=== PATIENT | female | born 1985 | race Two or more races ===

== ENCOUNTER 2016-08-16 22:30 | Emergency (ER) | payer OTHER ==
[2016-08-17 00:13] LABS: BASO # 0.1 K/mm3 (0.0-0.2); BASO % 0.7 % (0.0-1.0); EOS # 0.1 K/mm3 (0.0-0.50); EOS % 0.7 % (0.0-3.0); LARGE UNSTAINED CELL # 0.1 K/mm3 (0.0-0.4); LARGE UNSTAINED CELL % 1.1 % (0.0-4.0); LYMPH # 2.2 K/mm3 (1.5-4.5); LYMPH % 15.7 % (24.0-44.0); MEAN CORPUSCULAR HEMOGLOBIN 27.3 pg (27.0-33.0); MEAN CORPUSCULAR HGB CONC 33.5 g/dl (32.0-36.5); MEAN CORPUSCULAR VOLUME 81.4 fl (80.0-96.0); MONO # 0.7 K/mm3 (0.0-0.8); MONO % 5.1 % (0.0-5.0); NEUTROPHILS # 10.1 K/mm3 (1.8-7.7); NEUTROPHILS % 76.8 % (36.0-66.0); PLATELET COUNT, AUTOMATED 233 k/mm3 (150-450); RED CELL DISTRIBUTION WIDTH 13.2 % (11.5-14.5); WHITE BLOOD COUNT 13.2 K/mm3 (4.0-10.0)
[2016-08-17 00:58] LABS: ALBUMIN/GLOBULIN RATIO 0.91 (1.00-1.93); ALKALINE PHOSPHATASE 62 U/L (45-117); ALT/SGPT 15 U/L (12-78); AMYLASE 48 U/L (25-115); ANION GAP 12 MEQ/L (8-16); AST/SGOT 14 U/L (15-37); BILIRUBIN,DIRECT 0.3 MG/DL (0.0-0.2); BILIRUBIN,TOTAL 0.7 MG/DL (0.2-1.0); BLOOD UREA NITROGEN 4 MG/DL (7-18); CALCIUM LEVEL 8.4 MG/DL (8.5-10.1); CARBON DIOXIDE LEVEL 22 MEQ/L (21-32); CHLORIDE LEVEL 102 MEQ/L (98-107); CREATININE FOR GFR 1.04 MG/DL (0.55-1.02); GLOMERULAR FILTRATION RATE > 60.0 (>60); GLUCOSE, FASTING 105 MG/DL (70-105); POTASSIUM SERUM 3.4 MEQ/L (3.5-5.1); SODIUM LEVEL 136 MEQ/L (136-145); TOTAL PROTEIN 8.4 GM/DL (6.4-8.2)
[2016-08-17] MEDS ORDERED: ACETAMINOPHEN 325 MG TAB As Ordered ONE (00:58)
[2016-08-17 01:05] LABS: CONTROL LINE UCG INT CTR LINE PRESENT
[2016-08-17] MEDS ORDERED: cefTRIAXone SOD 1 GM VIAL (J0696) As Ordered ONE (01:36)
[2016-08-17] MEDS ORDERED: CIPROFLOXACIN 500 MG TAB As Ordered ONE (01:36)
--- NOTE | 2016-08-17 02:20 | EDDOCDS ---
Physician Documentation [facility] Name: Michaelle Morales Age: 31 yrs Sex: Female : 1985 Arrival Date: 08/16/2016 Time: 22:30 Bed I4 / M4 Private MD: NORTH Danielle Disposition: 08/17/16 01:48 Discharged to Home/Self Care. Impression: Urinary tract infection, site not specified - left pyelonephritis. - Condition is Stable. - Discharge Instructions: Pyelonephritis, Adult, Urinary Tract Infection, Urodynamic Testing, Hygu-nz-Iols. - Prescriptions for Cipro 500 mg Oral Tablet - take 1 tablet by ORAL route every 12 hours; 20 tablet. ZOFRAN ODT 4 mg - dissolve 1 tablet by ORAL route 4 times per day As needed do not chew, do not swallow whole; 10 tablet. Diflucan 150 mg Oral Tablet - take 1 tablet by ORAL route one time for 1 day; 2 tablet. - Medication Reconciliation, Local Pharmacy Hours form. - Follow up: NORTH Danielle; When: 2 - 3 days; Reason: Recheck today's complaints, Continuance of care. Follow up: Sanket Carreon MD; When: Call to arrange an appointment; Reason: Recheck today's complaints, Continuance of care. - Problem is an acute exacerbation. - Symptoms are unchanged. Historical: - Allergies: no known allergies; - Home Meds: 1. none - PMHx: none; - PSHx: none; - Social history: Smoking status: Patient states was never smoker of tobacco. No barriers to communication noted, The patient speaks fluent Swedish. - Family history: Not pertinent. - : The pt / caregiver states he / she is not on anticoagulants. Home medication list is obtained from the patient. - Exposure Risk Screening:: None identified. 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 3 in. (160.02 cm); Pain 6/10; 08/17 01:00 Temp 100.5(O); jmb 01:53 BP 110 / 65 LA Sitting (auto/reg); Pulse 77 MON; Resp 20 S; Temp 99.5(T); Pulse Ox 100% cln on R/A; Pain 0/10; 08/16 22:32 Body Mass Index 35.43 (90.72 kg, 160.02 cm) elp MDM: 08/16 23:42 Undress patient appropriately for examination ordered. ck7 23:42 Acetaminophen Tablet 975 mg PO once ordered. ck7 23:42 NS 0.9% 1000 ml IV at bolus once ordered. ck7 23:43 IV Saline Lock ordered. ck7 23:43 NOTHING BY MOUTH+DIET ordered. EDMS 23:43 Amylase Ordered. EDMS 23:43 Basic Metabolic Profile Ordered. EDMS 23:43 CBC with Diff Ordered. EDMS 23:43 Lipase Ordered. EDMS 23:43 Liver Profile Ordered. EDMS 23:43 Urinalysis Ordered. EDMS 23:43 Urine Culture Ordered. EDMS 08/17 00:35 [facility] [place] was scanned into [employer] and attached to record. lja 00:35 Financial registration complete. lja 00:42 CBC with Diff Reviewed. ck7 00:55 UCG- In Lab Ordered. EDMS 01:03 Acetaminophen Tablet 975 mg PO once ordered. jmb 01:14 UCG- In Lab Reviewed. mo1 01:14 Lipase Reviewed. mo1 01:14 Amylase Reviewed. mo1 01:14 Urinalysis Reviewed. mo1 01:15 Liver Profile Reviewed. mo1 01:15 Basic Metabolic Profile Reviewed. mo1 01:33 cefTRIAXone 1 grams IVPB once over 30 mins; dilute in 50mL of NS or D5W ordered. mo1 01:33 Ciprofloxacin 500 mg PO once ordered. mo1 Administered Medications: 00:02 Not Given (Patient Refused): Acetaminophen Tablet 975 mg PO once jmb 00:08 Drug: NS 0.9% 1000 ml [sodium chloride 0.9 % intravenous solution] Route: IV; Rate: jmb bolus; Site: right antecubital; 01:03 Drug: Acetaminophen 975 mg [acetaminophen 325 mg tablet (3 tabs)] Route: PO; jmb :43 Drug: cefTRIAXone 1 grams [ceftriaxone 1 gram solution for injection] Route: IVPB; jmb Infused Over: 30 mins; Site: right antecubital; 43 Drug: Ciprofloxacin 500 mg [ciprofloxacin 500 mg tablet (1 tabs)] Route: PO; linda Signatures: Dispatcher [employer] Venice BowserRN RN rs3 Andrey Valdivia, LAMONTC RPA-Cck7 Ivan Dorado PA PA mo1 Becker, Joshua,RN RN ellyb Epi, Yaritza valdez The chart was reviewed and I authenticate all verbal orders and agree with the evaluation and treatment provided.Corrections: (The following items were deleted from the chart) 00:53 08/16 23:42 UCG by Nursing ordered. ck7 ka4 Attachments: 08/17 00:35 [facility] [place] courtney MTDD
--- NOTE | 2016-08-17 02:20 | EDDOCDS ---
Nurse's Notes [facility] Name: Michaelle Morales Age: 31 yrs Sex: Female : 1985 Arrival Date: 08/16/2016 Time: 22:30 Bed I4 / M4 Private MD: NORTH Danielle Diagnosis: Urinary tract infection, site not specified-left pyelonephritis Presentation: 08/16 22:34 Presenting complaint: Patient states: fever, chills and left flank pain for 2 days. h/o rs3 pyelonephritis. Acute neurological deficits are not present. Mechanism of Injury: No Mechanism of Injury. Adult Sepsis Screening: The patient does not have new or worsening altered mentation. Patient's respiratory rate is less than 22. Systolic blood pressure is greater than 100. Patient has a qSOFA score of 0- Negative Sepsis Screen. Suicide/Homicide risk assessment- the patient denies having any suicidal and/or homicidal ideations and does not present with any other emotional, behavioral or mental health complaints. Status: The patient is a dependent. Transition of care: patient was not received from another setting of care. 22:34 Acuity: WILLIAM Level 3 rs3 22:34 Method Of Arrival: Walkin/Carried/Asstd rs3 Triage Assessment: 22:35 General: Appears in no apparent distress. Pain: Location: left mid back. Pt Declines rs3 HIV testing. Musculoskeletal: Reports Pain is 7 out of 10 on a pain scale. 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 none - PMHx: none; - PSHx: none; - Social history: Smoking status: Patient states was never smoker of tobacco. No barriers to communication noted, The patient speaks fluent Jordanian. - Family history: Not pertinent. - : The pt / caregiver states he / she is not on anticoagulants. Home medication list is obtained from the patient. - Exposure Risk Screening:: None identified. Screenin/02 00:06 Screening information is obtained from the patient. Fall risk: No risks identified. jmb Assistance ADL's: requires no assistance with activities of daily living. Abuse/DV Screen: The patient / caregiver reports he/she is: not in a situation that causes fear, pain or injury. Nutritional screening: No deficits noted. home support is adequate. 02:18 Advance Directives: Currently, there is no health care proxy. There is no active DNR jmb order. There is no living will. There is no Power of Bus Dispatcher [employer]. Assessment: 00:06 General: Appears in no apparent distress, comfortable, Behavior is appropriate for age, jmb cooperative. Pain: Location: left mid back Pain currently is 6 out of 10 on a pain scale. Neurological: Level of Consciousness is awake, alert, obeys commands, Oriented to person, place, time, Director Radio are equal bilaterally Speech is normal, Facial symmetry appears normal, Facial symmetry: tongue is midline. Cardiovascular: Capillary refill < 3 seconds Heart tones present Pulses are all present. Rhythm is regular. Respiratory: Airway is patent Respiratory effort is even, unlabored, Respiratory pattern is regular, symmetrical, Breath sounds are clear bilaterally. GI: Abdomen is non- distended Bowel sounds present X 4 quads. hypoactive in right upper quadrant, left upper quadrant, right lower quadrant and left lower quadrant Abd is soft X 4 quads. Derm: Skin is pink, warm & dry. Musculoskeletal: Range of motion intact in all extremities. 00:09 General: Appears in no apparent distress, comfortable, well nourished, well groomed, ka4 Behavior is appropriate for age, cooperative, pleasant. Neurological: Level of Consciousness is awake, alert, obeys commands, Oriented to person, place, time, Director Radio are equal bilaterally Moves all extremities. Gait is steady, Speech is normal, Facial symmetry appears normal, Facial symmetry: tongue is midline. Cardiovascular: Capillary refill < 3 seconds in bilateral fingers toes. Respiratory: Airway is patent Respiratory effort is even, unlabored, Respiratory pattern is regular, symmetrical. Derm: Skin is intact, is healthy with good turgor, Skin is pink, warm & dry. 00:43 General: Appears in no apparent distress, comfortable, Behavior is appropriate for age, jmb cooperative, Patient up to bathroom. NO voiced complaints at this time.. Neurological: Level of Consciousness is awake, alert, obeys commands, Oriented to person, place, time. Respiratory: Airway is patent Respiratory effort is even, unlabored, Respiratory pattern is regular, symmetrical. 01:00 General: Ramiro GROSSMAN asked this video game script writer why patient did not receive Tylenol as jmb ordered originally. Provider made aware that patient only waned fluids, refused tylenol. Provider stated that if she refuses tylenol then she can sign an AMA. This video game script writer spoke with patient and explained reason for patient being ordered tylenol, patient was willing to take medication. Patient temperature taken orally, temperature 100.5 degrees fahreneheit. Patient took tylenol post recheck on temperature. . 02:18 General: Patient instructed on discharge instructions. Patient asked if there were any [facility] questions regarding discharge, patient stated no. IV discontinued per hospital policy. Patient signed discharge instructions. Patient discharged in stable condition. . Vital Signs: 08/16 22:32 BP 133 / 68; Pulse 102; Resp 20; Temp 101.3(O); Pulse Ox 100% ; Weight 90.72 kg; Height elp 5 ft. 3 in. (160.02 cm); Pain 6/10; 08/17 01:00 Temp 100.5(O); jmb 01:53 BP 110 / 65 LA Sitting (auto/reg); Pulse 77 MON; Resp 20 S; Temp 99.5(T); Pulse Ox 100% cln on R/A; Pain 0/10; 08/16 22:32 Body Mass Index 35.43 (90.72 kg, 160.02 cm) elp Vitals: 08/16 22:32 Log In Time: August 16, 2016 at 22:[address] [facility] ED Course: 22:32 Patient visited by Tonja Lopez PCA. elp 22:32 NORTH Danielle is Private Physician. elp 22:32 Patient visited by Tonja Lopez PCA. elp 22:32 Patient moved to Waiting elp 22:32 Patient moved to Pre RCE elp 22:35 Triage Initiated rs3 23:20 Patient moved to Triage 2 kmg1 23:24 [facility] ck7 23:24 Chapincito Carrillo DO is Attending Physician. ck7 23:24 Patient visited by Andrey Valdivia RPA-C. ck7 23:45 Patient moved to I4 / M4 km 08/17 00:06 The patient / caregiver is instructed regarding the plan of care and ED course. b 00:06 Inserted saline lock: 20 gauge in right antecubital area and blood collected. The b patient tolerated the procedure well. Labs drawn. (by ED staff). Sent per order to lab. 00:08 Patient visited by Tai Marks RN. jmb 00:08 Patient visited by Tai Marks RN. jmb 00:08 Amylase Sent. jmb 00:08 Basic Metabolic Profile Sent. jmb 00:08 CBC with Diff Sent. jmb 00:08 Lipase Sent. jmb 00:08 Liver Profile Sent. jmb 00:10 Patient visited by Latoya Hayden LPN. ka4 00:35 [facility] Payment Agreement was scanned into [employer] and attached to record. lja 00:44 Patient visited by Tai Marks RN. jmb 00:55 Patient visited by Latoya Hayden LPN. ka4 00:55 Urine collected. Clean catch specimen. Urine specimen sent to lab. ka4 00:55 UCG- In Lab Sent. ka4 00:56 PHCP role handed off by Andrey Valdivia RPA-C mo1 00:56 Ivan Dorado PA is PHCP. mo1 01:48 NORTH Danielle is Referral Physician. mo1 01:48 Sanket Carreon MD is Referral Physician. mo1 01:54 Patient visited by Aleksandra Goins PCA. cln 02:18 Discontinued lock intact, bleeding controlled, pressure dressing applied, No jmb redness/swelling at site. No procedures done that require assistance. Administered Medications: 00:02 Not Given (Patient Refused): Acetaminophen Tablet 975 mg PO once jmb 00:08 Drug: NS 0.9% 1000 ml [sodium chloride 0.9 % intravenous solution] Route: IV; Rate: jmb bolus; Site: right antecubital; 01:03 Drug: Acetaminophen 975 mg [acetaminophen 325 mg tablet (3 tabs)] Route: PO; jmb 01:43 Drug: cefTRIAXone 1 grams [ceftriaxone 1 gram solution for injection] Route: IVPB; jmb Infused Over: 30 mins; Site: right antecubital; :43 Drug: Ciprofloxacin 500 mg [ciprofloxacin 500 mg tablet (1 tabs)] Route: PO; jmb Order Results: Lab Order: Amylase; SPEC'M 08/17/16 00:02 Test: AMYLASE; Value: 48; Range: 25-115; Units: U/L; Status: F Lab Order: Basic Metabolic Profile; SPEC'M 08/17/16 00:02 Test: GLUCOSE, FASTING; Value: 105; Range: 70-105; Units: MG/DL; Status: F Test: BLOOD UREA NITROGEN; Value: 4; Range: 7-18; Abnormal: Below low normal; Units: MG/DL; Status: F Test: CREATININE FOR GFR; Value: 1.04; Range: 0.55-1.02; Abnormal: Above high normal; Units: MG/DL; Status: F Test: GLOMERULAR FILTRATION RATE; Value: > 60.0; Range: >60; Status: F Test: SODIUM LEVEL; Value: 136; Range: 136-145; Units: MEQ/L; Status: F Test: POTASSIUM SERUM; Value: 3.4; Range: 3.5-5.1; Abnormal: Below low normal; Units: MEQ/L; Status: F Test: CHLORIDE LEVEL; Value: 102; Range: 98-107; Units: MEQ/L; Status: F Test: CARBON DIOXIDE LEVEL; Value: 22; Range: 21-32; Units: MEQ/L; Status: F Test: ANION GAP; Value: 12; Range: 8-16; Units: MEQ/L; Status: F Test: CALCIUM LEVEL; Value: 8.4; Range: 8.5-10.1; Abnormal: Below low normal; Units: MG/DL; Status: F Test Note: ; Units are mL/min/1.73 m2 Chronic Kidney Disease Staging per NKF: Stage I & II GFR >=60 Normal to Mildly Decreased Stage III GFR 30-59 Moderately Decreased Stage IV GFR 15-29 Severely Decreased Stage V GFR <15 Very Little GFR Left ESRD GFR <15 on 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 OPERATOR Lab Order: CBC with Diff; SPEC'M 08/17/16 00:02 Test: WHITE BLOOD COUNT; Value: 13.2; Range: 4.0-10.0; Abnormal: Above high normal; Units: K/mm3; Status: F Test: RED BLOOD COUNT; Value: 4.71; Range: 4.00-5.40; Units: M/mm3; Status: F Test: HEMOGLOBIN; Value: 12.8; Range: 12.0-16.0; Units: g/dl; Status: F Test: HEMATOCRIT; Value: 38.3; Range: 36.0-47.0; Units: %; Status: F Test: MEAN CORPUSCULAR VOLUME; Value: 81.4; Range: 80.0-96.0; Units: fl; Status: F Test: MEAN CORPUSCULAR HEMOGLOBIN; Value: 27.3; Range: 27.0-33.0; Units: pg; Status: F Test: MEAN CORPUSCULAR HGB CONC; Value: 33.5; Range: 32.0-36.5; Units: g/dl; Status: F Test: RED CELL DISTRIBUTION WIDTH; Value: 13.2; Range: 11.5-14.5; Units: %; Status: F Test: PLATELET COUNT, AUTOMATED; Value: 233; Range: 150-450; Units: k/mm3; Status: F Test: NEUTROPHILS %; Value: 76.8; Range: 36.0-66.0; Abnormal: Above high normal; Units: %; Status: F Test: LYMPH %; Value: 15.7; Range: 24.0-44.0; Abnormal: Below low normal; Units: %; Status: F Test: MONO %; Value: 5.1; Range: 0.0-5.0; Abnormal: Above high normal; Units: %; Status: F Test: EOS %; Value: 0.7; Range: 0.0-3.0; Units: %; Status: F Test: BASO %; Value: 0.7; Range: 0.0-1.0; Units: %; Status: F Test: LARGE UNSTAINED CELL %; Value: 1.1; Range: 0.0-4.0; Units: %; Status: F Test: NEUTROPHILS #; Value: 10.1; Range: 1.8-7.7; Abnormal: Above high normal; Units: K/mm3; Status: F Test: LYMPH #; Value: 2.2; Range: 1.5-4.5; Units: K/mm3; Status: F Test: MONO #; Value: 0.7; Range: 0.0-0.8; Units: K/mm3; Status: F Test: EOS #; Value: 0.1; Range: 0.0-0.50; Units: K/mm3; Status: F Test: BASO #; Value: 0.1; Range: 0.0-0.2; Units: K/mm3; Status: F Test: LARGE UNSTAINED CELL #; Value: 0.1; Range: 0.0-0.4; Units: K/mm3; Status: F Lab Order: Lipase; [facility] 08/17/16 00:02 Test: LIPASE; Value: 105; Range: 73-393; Units: U/L; Status: F Lab Order: Liver Profile; [facility] 08/17/16 00:02 Test: AST/SGOT; Value: 14; Range: 15-37; Abnormal: Below low normal; Units: U/L; Status: F Test: ALT/SGPT; Value: 15; Range: 12-78; Units: U/L; Status: F Test: ALKALINE PHOSPHATASE; Value: 62; Range: 45-117; Units: U/L; Status: F Test: BILIRUBIN,TOTAL; Value: 0.7; Range: 0.2-1.0; Units: MG/DL; Status: F Test: BILIRUBIN,DIRECT; Value: 0.3; Range: 0.0-0.2; Abnormal: Above high normal; Units: MG/DL; Status: F Test: TOTAL PROTEIN; Value: 8.4; Range: 6.4-8.2; Abnormal: Above high normal; Units: GM/DL; Status: F Test: ALBUMIN; Value: 4.0; Range: 3.2-5.2; Units: GM/DL; Status: F Test: ALBUMIN/GLOBULIN RATIO; Value: 0.91; Range: 1.00-1.93; Abnormal: Below low normal; Status: F Lab Order: Urinalysis; [facility] 08/17/16 00:48 Test: APPEARANCE, URINE; Value: CLEAR; Range: CLEAR; Status: F Test: COLOR, URINE; Value: STRAW; Range: YELLOW; Status: F Test: PH,URINE; Value: 7.0; Range: 5.0-9.0; Units: UNITS; Status: F Test: SPECIFIC GRAVITY URINE AUTO; Value: 1.000; Range: 1.002-1.035; Abnormal: Below low normal; Status: F Test: PROTEIN, URINE AUTO; Value: NEGATIVE; Range: NEGATIVE; Units: mg/dL; Status: F Test: GLUCOSE, URINE (UA) AUTO; Value: NEGATIVE; Range: NEGATIVE; Units: mg/dL; Status: F Test: KETONE, URINE AUTO; Value: NEGATIVE; Range: NEGATIVE; Units: mg/dL; Status: F Test: UROBILINOGEN, URINE AUTO; Value: 0.2; Range: 0.0-2.0; Units: mg/dL; Status: F Test: BILIRUBIN, URINE AUTO; Value: NEGATIVE; Range: NEGATIVE; Status: F Test: NITRITE, URINE AUTO; Value: NEGATIVE; Range: NEGATIVE; Status: F Test: LEUKOCYTE ESTERASE, URINE AUTO; Value: 3+; Range: NEGATIVE; Abnormal: Above high normal; Status: F Test: BLOOD, URINE BLOOD; Value: 1+; Range: NEGATIVE; Abnormal: Above high normal; Status: F Test: WBC, URINE AUTO; Value: 2; Range: 0-3; Units: /HPF; Status: F Test: RBC, URINE AUTO; Value: 0; Range: 0-3; Units: /HPF; Status: F Test: BACTERIA, URINE AUTO; Value: 1+; Range: NEGATIVE; Abnormal: Above high normal; Status: F Test: SQUAMOUS EPITHELIAL CELL UR AU; Value: 0; Range: 0-6; Units: /HPF; Status: F Test: HYALINE CAST, URINE AUTO; Value: 0; Range: 0-1; Units: /LPF; Status: F Lab Order: UCG- In Lab; SPEC'M 08/17/17 00:48 Test: URINE PREG TEST; Value: NEGATIVE; Range: NEGATIVE; Status: F Outcome: 01:48 Discharge ordered by Provider. mo1 02:18 Discharge Assessment: Patient awake, alert and oriented x 3. No cognitive and/or jmb functional deficits noted. Patient verbalized understanding of disposition instructions. Patient awake and alert. obeys commands, Oriented to person, place and time. Patient verbalized understanding of disposition instructions. Patient has no functional deficits. patient administered narcotics - no. The following High Risk Discharge criteria are identified: None. Discharged to home ambulatory. Condition: stable. Discharge instructions given to patient, Instructed on discharge instructions, follow up and referral plans. medication usage, Demonstrated understanding of instructions, medications, Pt was receptive of discharge instructions/ teaching. Prescriptions given X 3. CT Study completed. Property sent home with patient. 02:19 Patient left the ED. jmb Signatures: Silvia Blue, RN RN kmg1 Venice Valdez,RN RN rs3 Andrey Valdivia, RPA-C RPA-Cck7 Ivan Dorado PA PA mo1 Tonja Lopez, ART GILDER ART GILDER elp Tai Marks,RN RN ellyb Catracho,Latoya,CATCHER PLUG CATCHER PLUG ka4 Arel, Yaritza Goins, Crystal, ART GILDER ART GILDER cln MTDD
--- NOTE | 2016-08-19 03:20 | EDDOCDS ---
Nurse's Notes [facility] Name: Michaelle Morales Age: 31 yrs Sex: Female : 1985 Arrival Date: 08/16/2016 Time: 22:30 Bed I4 / M4 Private MD: NORTH Danielle Diagnosis: Urinary tract infection, site not specified-left pyelonephritis Presentation: 08/16 22:34 Presenting complaint: Patient states: fever, chills and left flank pain for 2 days. h/o rs3 pyelonephritis. Acute neurological deficits are not present. Mechanism of Injury: No Mechanism of Injury. Adult Sepsis Screening: The patient does not have new or worsening altered mentation. Patient's respiratory rate is less than 22. Systolic blood pressure is greater than 100. Patient has a qSOFA score of 0- Negative Sepsis Screen. Suicide/Homicide risk assessment- the patient denies having any suicidal and/or homicidal ideations and does not present with any other emotional, behavioral or mental health complaints. Status: The patient is a dependent. Transition of care: patient was not received from another setting of care. 22:34 Acuity: WILLIAM Level 3 rs3 22:34 Method Of Arrival: Walkin/Carried/Asstd rs3 Triage Assessment: 22:35 General: Appears in no apparent distress. Pain: Location: left mid back. Pt Declines rs3 HIV testing. Musculoskeletal: Reports Pain is 7 out of 10 on a pain scale. 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 none - PMHx: none; - PSHx: none; - Social history: Smoking status: Patient states was never smoker of tobacco. No barriers to communication noted, The patient speaks fluent Citizen Of [place]. - Family history: Not pertinent. - : The pt / caregiver states he / she is not on anticoagulants. Home medication list is obtained from the patient. - Exposure Risk Screening:: None identified. Screenin/02 00:06 Screening information is obtained from the patient. Fall risk: No risks identified. jmb Assistance ADL's: requires no assistance with activities of daily living. Abuse/DV Screen: The patient / caregiver reports he/she is: not in a situation that causes fear, pain or injury. Nutritional screening: No deficits noted. home support is adequate. 02:18 Advance Directives: Currently, there is no health care proxy. There is no active DNR jmb order. There is no living will. 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 Assessment: 00:06 General: Appears in no apparent distress, comfortable, Behavior is appropriate for age, jmb cooperative. Pain: Location: left mid back Pain currently is 6 out of 10 on a pain scale. Neurological: Level of Consciousness is awake, alert, obeys commands, Oriented to person, place, time, Truck Spotter are equal bilaterally Speech is normal, Facial symmetry appears normal, Facial symmetry: tongue is midline. Cardiovascular: Capillary refill < 3 seconds Heart tones present Pulses are all present. Rhythm is regular. Respiratory: Airway is patent Respiratory effort is even, unlabored, Respiratory pattern is regular, symmetrical, Breath sounds are clear bilaterally. GI: Abdomen is non- distended Bowel sounds present X 4 quads. hypoactive in right upper quadrant, left upper quadrant, right lower quadrant and left lower quadrant Abd is soft X 4 quads. Derm: Skin is pink, warm & dry. Musculoskeletal: Range of motion intact in all extremities. 00:09 General: Appears in no apparent distress, comfortable, well nourished, well groomed, ka4 Behavior is appropriate for age, cooperative, pleasant. Neurological: Level of Consciousness is awake, alert, obeys commands, Oriented to person, place, time, Truck Spotter are equal bilaterally Moves all extremities. Gait is steady, Speech is normal, Facial symmetry appears normal, Facial symmetry: tongue is midline. Cardiovascular: Capillary refill < 3 seconds in bilateral fingers toes. Respiratory: Airway is patent Respiratory effort is even, unlabored, Respiratory pattern is regular, symmetrical. Derm: Skin is intact, is healthy with good turgor, Skin is pink, warm & dry. 00:43 General: Appears in no apparent distress, comfortable, Behavior is appropriate for age, jmb cooperative, Patient up to bathroom. NO voiced complaints at this time.. Neurological: Level of Consciousness is awake, alert, obeys commands, Oriented to person, place, time. Respiratory: Airway is patent Respiratory effort is even, unlabored, Respiratory pattern is regular, symmetrical. 01:00 General: Ramiro GROSSMAN asked this junior underwriter why patient did not receive Tylenol as jmb ordered originally. Provider made aware that patient only waned fluids, refused tylenol. Provider stated that if she refuses tylenol then she can sign an AMA. This junior underwriter spoke with patient and explained reason for patient being ordered tylenol, patient was willing to take medication. Patient temperature taken orally, temperature 100.5 degrees fahreneheit. Patient took tylenol post recheck on temperature. . 02:18 General: Patient instructed on discharge instructions. Patient asked if there were any [facility] questions regarding discharge, patient stated no. IV discontinued per hospital policy. Patient signed discharge instructions. Patient discharged in stable condition. . Vital Signs: 08/16 22:32 BP 133 / 68; Pulse 102; Resp 20; Temp 101.3(O); Pulse Ox 100% ; Weight 90.72 kg; Height elp 5 ft. 3 in. (160.02 cm); Pain 6/10; 08/17 01:00 Temp 100.5(O); jmb 01:53 BP 110 / 65 LA Sitting (auto/reg); Pulse 77 MON; Resp 20 S; Temp 99.5(T); Pulse Ox 100% cln on R/A; Pain 0/10; 08/16 22:32 Body Mass Index 35.43 (90.72 kg, 160.02 cm) elp Vitals: 08/16 22:32 Log In Time: August 16, 2016 at 22:30. [facility] ED Course: 22:32 Patient visited by Tonja Lopez PCA. elp 22:32 NORTH Danielle is Private Physician. elp 22:32 Patient visited by Tonja Lopez PCA. elp 22:32 Patient moved to Waiting elp 22:32 Patient moved to Pre RCE elp 22:35 Triage Initiated rs3 23:20 Patient moved to Triage 2 kmg1 23:24 [facility] ck7 23:24 Chapincito Carrillo DO is Attending Physician. ck7 23:24 Patient visited by Andrey Valdivia RPA-C. ck7 23:45 Patient moved to I4 / M4 km 08/17 00:06 The patient / caregiver is instructed regarding the plan of care and ED course. b 00:06 Inserted saline lock: 20 gauge in right antecubital area and blood collected. The b patient tolerated the procedure well. Labs drawn. (by ED staff). Sent per order to lab. 00:08 Patient visited by Tai Marks RN. jmb 00:08 Patient visited by Tai Marks RN. jmb 00:08 Amylase Sent. jmb 00:08 Basic Metabolic Profile Sent. jmb 00:08 CBC with Diff Sent. jmb 00:08 Lipase Sent. jmb 00:08 Liver Profile Sent. jmb 00:10 Patient visited by Latoya Hayden LPN. ka4 00:35 [facility] Payment Agreement was scanned into [employer] and attached to record. lja 00:44 Patient visited by Tai Marks RN. jmb 00:55 Patient visited by Latoya Hayden LPN. ka4 00:55 Urine collected. Clean catch specimen. Urine specimen sent to lab. ka4 00:55 UCG- In Lab Sent. ka4 00:56 PHCP role handed off by Andrey Valdivia RPA-C mo1 00:56 Ivan Dorado PA is PHCP. mo1 01:48 DIONNA Danielle is Referral Physician. mo1 01:48 Sanket Carreon MD is Referral Physician. mo1 01:54 Patient visited by Aleksandra Goins PCA. cln 02:18 Discontinued lock intact, bleeding controlled, pressure dressing applied, No jmb redness/swelling at site. No procedures done that require assistance. 04:39 T-Sheet-- Draft Copy was scanned into [employer] and attached to record. hs2 Administered Medications: 00:02 Not Given (Patient Refused): Acetaminophen Tablet 975 mg PO once jmb 00:08 Drug: NS 0.9% 1000 ml [sodium chloride 0.9 % intravenous solution] Route: IV; Rate: jmb bolus; Site: right antecubital; 01:03 Drug: Acetaminophen 975 mg [acetaminophen 325 mg tablet (3 tabs)] Route: PO; jmb 01:43 Drug: cefTRIAXone 1 grams [ceftriaxone 1 gram solution for injection] Route: IVPB; jmb Infused Over: 30 mins; Site: right antecubital; :43 Drug: Ciprofloxacin 500 mg [ciprofloxacin 500 mg tablet (1 tabs)] Route: PO; jmb Order Results: Lab Order: Amylase; SPEC'M 08/17/16 00:02 Test: AMYLASE; Value: 48; Range: 25-115; Units: U/L; Status: F Lab Order: Basic Metabolic Profile; SPEC08/17/16 00:02 Test: GLUCOSE, FASTING; Value: 105; Range: 70-105; Units: MG/DL; Status: F Test: BLOOD UREA NITROGEN; Value: 4; Range: 7-18; Abnormal: Below low normal; Units: MG/DL; Status: F Test: CREATININE FOR GFR; Value: 1.04; Range: 0.55-1.02; Abnormal: Above high normal; Units: MG/DL; Status: F Test: GLOMERULAR FILTRATION RATE; Value: > 60.0; Range: >60; Status: F Test: SODIUM LEVEL; Value: 136; Range: 136-145; Units: MEQ/L; Status: F Test: POTASSIUM SERUM; Value: 3.4; Range: 3.5-5.1; Abnormal: Below low normal; Units: MEQ/L; Status: F Test: CHLORIDE LEVEL; Value: 102; Range: 98-107; Units: MEQ/L; Status: F Test: CARBON DIOXIDE LEVEL; Value: 22; Range: 21-32; Units: MEQ/L; Status: F Test: ANION GAP; Value: 12; Range: 8-16; Units: MEQ/L; Status: F Test: CALCIUM LEVEL; Value: 8.4; Range: 8.5-10.1; Abnormal: Below low normal; Units: MG/DL; Status: F Test Note: ; Units are mL/min/1.73 m2 Chronic Kidney Disease Staging per NKF: Stage I & II GFR >=60 Normal to Mildly Decreased Stage III GFR 30-59 Moderately Decreased Stage IV GFR 15-29 Severely Decreased Stage V GFR <15 Very Little GFR Left ESRD GFR <15 on POOL HAND Lab Order: CBC with Diff; SPEC08/17/16 00:02 Test: WHITE BLOOD COUNT; Value: 13.2; Range: 4.0-10.0; Abnormal: Above high normal; Units: K/mm3; Status: F Test: RED BLOOD COUNT; Value: 4.71; Range: 4.00-5.40; Units: M/mm3; Status: F Test: HEMOGLOBIN; Value: 12.8; Range: 12.0-16.0; Units: g/dl; Status: F Test: HEMATOCRIT; Value: 38.3; Range: 36.0-47.0; Units: %; Status: F Test: MEAN CORPUSCULAR VOLUME; Value: 81.4; Range: 80.0-96.0; Units: fl; Status: F Test: MEAN CORPUSCULAR HEMOGLOBIN; Value: 27.3; Range: 27.0-33.0; Units: pg; Status: F Test: MEAN CORPUSCULAR HGB CONC; Value: 33.5; Range: 32.0-36.5; Units: g/dl; Status: F Test: RED CELL DISTRIBUTION WIDTH; Value: 13.2; Range: 11.5-14.5; Units: %; Status: F Test: PLATELET COUNT, AUTOMATED; Value: 233; Range: 150-450; Units: k/mm3; Status: F Test: NEUTROPHILS %; Value: 76.8; Range: 36.0-66.0; Abnormal: Above high normal; Units: %; Status: F Test: LYMPH %; Value: 15.7; Range: 24.0-44.0; Abnormal: Below low normal; Units: %; Status: F Test: MONO %; Value: 5.1; Range: 0.0-5.0; Abnormal: Above high normal; Units: %; Status: F Test: EOS %; Value: 0.7; Range: 0.0-3.0; Units: %; Status: F Test: BASO %; Value: 0.7; Range: 0.0-1.0; Units: %; Status: F Test: LARGE UNSTAINED CELL %; Value: 1.1; Range: 0.0-4.0; Units: %; Status: F Test: NEUTROPHILS #; Value: 10.1; Range: 1.8-7.7; Abnormal: Above high normal; Units: K/mm3; Status: F Test: LYMPH #; Value: 2.2; Range: 1.5-4.5; Units: K/mm3; Status: F Test: MONO #; Value: 0.7; Range: 0.0-0.8; Units: K/mm3; Status: F Test: EOS #; Value: 0.1; Range: 0.0-0.50; Units: K/mm3; Status: F Test: BASO #; Value: 0.1; Range: 0.0-0.2; Units: K/mm3; Status: F Test: LARGE UNSTAINED CELL #; Value: 0.1; Range: 0.0-0.4; Units: K/mm3; Status: F Lab Order: Lipase; [facility] 08/17/16 00:02 Test: LIPASE; Value: 105; Range: 73-393; Units: U/L; Status: F Lab Order: Liver Profile; [facility] 08/17/16 00:02 Test: AST/SGOT; Value: 14; Range: 15-37; Abnormal: Below low normal; Units: U/L; Status: F Test: ALT/SGPT; Value: 15; Range: 12-78; Units: U/L; Status: F Test: ALKALINE PHOSPHATASE; Value: 62; Range: 45-117; Units: U/L; Status: F Test: BILIRUBIN,TOTAL; Value: 0.7; Range: 0.2-1.0; Units: MG/DL; Status: F Test: BILIRUBIN,DIRECT; Value: 0.3; Range: 0.0-0.2; Abnormal: Above high normal; Units: MG/DL; Status: F Test: TOTAL PROTEIN; Value: 8.4; Range: 6.4-8.2; Abnormal: Above high normal; Units: GM/DL; Status: F Test: ALBUMIN; Value: 4.0; Range: 3.2-5.2; Units: GM/DL; Status: F Test: ALBUMIN/GLOBULIN RATIO; Value: 0.91; Range: 1.00-1.93; Abnormal: Below low normal; Status: F Lab Order: Urinalysis; [facility] 08/17/16 00:48 Test: APPEARANCE, URINE; Value: CLEAR; Range: CLEAR; Status: F Test: COLOR, URINE; Value: STRAW; Range: YELLOW; Status: F Test: PH,URINE; Value: 7.0; Range: 5.0-9.0; Units: UNITS; Status: F Test: SPECIFIC GRAVITY URINE AUTO; Value: 1.000; Range: 1.002-1.035; Abnormal: Below low normal; Status: F Test: PROTEIN, URINE AUTO; Value: NEGATIVE; Range: NEGATIVE; Units: mg/dL; Status: F Test: GLUCOSE, URINE (UA) AUTO; Value: NEGATIVE; Range: NEGATIVE; Units: mg/dL; Status: F Test: KETONE, URINE AUTO; Value: NEGATIVE; Range: NEGATIVE; Units: mg/dL; Status: F Test: UROBILINOGEN, URINE AUTO; Value: 0.2; Range: 0.0-2.0; Units: mg/dL; Status: F Test: BILIRUBIN, URINE AUTO; Value: NEGATIVE; Range: NEGATIVE; Status: F Test: NITRITE, URINE AUTO; Value: NEGATIVE; Range: NEGATIVE; Status: F Test: LEUKOCYTE ESTERASE, URINE AUTO; Value: 3+; Range: NEGATIVE; Abnormal: Above high normal; Status: F Test: BLOOD, URINE BLOOD; Value: 1+; Range: NEGATIVE; Abnormal: Above high normal; Status: F Test: WBC, URINE AUTO; Value: 2; Range: 0-3; Units: /HPF; Status: F Test: RBC, URINE AUTO; Value: 0; Range: 0-3; Units: /HPF; Status: F Test: BACTERIA, URINE AUTO; Value: 1+; Range: NEGATIVE; Abnormal: Above high normal; Status: F Test: SQUAMOUS EPITHELIAL CELL UR AU; Value: 0; Range: 0-6; Units: /HPF; Status: F Test: HYALINE CAST, URINE AUTO; Value: 0; Range: 0-1; Units: /LPF; Status: F Lab Order: UCG- In Lab; SPEC'M 08/17/16 00:48 Test: URINE PREG TEST; Value: NEGATIVE; Range: NEGATIVE; Status: F Outcome: 01:48 Discharge ordered by Provider. mo1 02:18 Discharge Assessment: Patient awake, alert and oriented x 3. No cognitive and/or jmb functional deficits noted. Patient verbalized understanding of disposition instructions. Patient awake and alert. obeys commands, Oriented to person, place and time. Patient verbalized understanding of disposition instructions. Patient has no functional deficits. patient administered narcotics - no. The following High Risk Discharge criteria are identified: None. Discharged to home ambulatory. Condition: stable. Discharge instructions given to patient, Instructed on discharge instructions, follow up and referral plans. medication usage, Demonstrated understanding of instructions, medications, Pt was receptive of discharge instructions/ teaching. Prescriptions given X 3. CT Study completed. Property sent home with patient. 02:19 Patient left the ED. linda Signatures: Silvia Blue, RN RN kmg1 Venice Valdez,RN RN rs3 Andrey Valdivia, HOLLEY-C RPA-Cck7 Ivan Dorado, CHAUNCEY PA mo1 Jessica, Tonja, BLADE OPERATOR BLADE OPERATOR elp Tai Marks,RN RN ellyb Latoya Hayden,EXTRACTOR PLANT OPERATOR EXTRACTOR PLANT OPERATOR ka4 Arel, Yaritza ljYuliya Capone, [facility] Reg hs2 Buster, Aleksandra, BLADE OPERATOR BLADE OPERATOR cln Chart Complete MTDD
--- NOTE | 2016-08-19 03:20 | EDDOCDS ---
Physician Documentation [facility] Name: Michaelle Morales Age: 31 yrs Sex: Female : 1985 Arrival Date: 08/16/2016 Time: 22:30 Bed I4 / M4 Private MD: NORTH Danielle Disposition: 08/17/16 01:48 Discharged to Home/Self Care. Impression: Urinary tract infection, site not specified - left pyelonephritis. - Condition is Stable. - Discharge Instructions: Pyelonephritis, Adult, Urinary Tract Infection, Urodynamic Testing, [id number]. - Prescriptions for Cipro 500 mg Oral Tablet - take 1 tablet by ORAL route every 12 hours; 20 tablet. ZOFRAN ODT 4 mg - dissolve 1 tablet by ORAL route 4 times per day As needed do not chew, do not swallow whole; 10 tablet. Diflucan 150 mg Oral Tablet - take 1 tablet by ORAL route one time for 1 day; 2 tablet. - Medication Reconciliation, Local Pharmacy Hours form. - Follow up: NORTH Danielle; When: 2 - 3 days; Reason: Recheck today's complaints, Continuance of care. Follow up: Sanket Carreon MD; When: Call to arrange an appointment; Reason: Recheck today's complaints, Continuance of care. - Problem is an acute exacerbation. - Symptoms are unchanged. Historical: - Allergies: no known allergies; - Home Meds: 1. none - PMHx: none; - PSHx: none; - Social history: Smoking status: Patient states was never smoker of tobacco. No barriers to communication noted, The patient speaks fluent Lao. - Family history: Not pertinent. - : The pt / caregiver states he / she is not on anticoagulants. Home medication list is obtained from the patient. - Exposure Risk Screening:: None identified. 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 3 in. (160.02 cm); Pain 6/10; 08/17 01:00 Temp 100.5(O); jmb 01:53 BP 110 / 65 LA Sitting (auto/reg); Pulse 77 MON; Resp 20 S; Temp 99.5(T); Pulse Ox 100% cln on R/A; Pain 0/10; 08/16 22:32 Body Mass Index 35.43 (90.72 kg, 160.02 cm) elp MDM: 08/16 23:42 Undress patient appropriately for examination ordered. ck7 23:42 Acetaminophen Tablet 975 mg PO once ordered. ck7 23:42 NS 0.9% 1000 ml IV at bolus once ordered. ck7 23:43 IV Saline Lock ordered. ck7 23:43 NOTHING BY MOUTH+DIET ordered. EDMS 23:43 Amylase Ordered. EDMS 23:43 Basic Metabolic Profile Ordered. EDMS 23:43 CBC with Diff Ordered. EDMS 23:43 Lipase Ordered. EDMS 23:43 Liver Profile Ordered. EDMS 23:43 Urinalysis Ordered. EDMS 23:43 Urine Culture Ordered. EDMS 08/17 00:35 [facility] Payment Agreement was scanned into [employer] and attached to record. lja 00:35 Financial registration complete. lja 00:42 CBC with Diff Reviewed. ck7 00:55 UCG- In Lab Ordered. EDMS 01:03 Acetaminophen Tablet 975 mg PO once ordered. jmb 01:14 UCG- In Lab Reviewed. mo1 01:14 Lipase Reviewed. mo1 01:14 Amylase Reviewed. mo1 01:14 Urinalysis Reviewed. mo1 01:15 Liver Profile Reviewed. mo1 01:15 Basic Metabolic Profile Reviewed. mo1 01:33 cefTRIAXone 1 grams IVPB once over 30 mins; dilute in 50mL of NS or D5W ordered. mo1 01:33 Ciprofloxacin 500 mg PO once ordered. mo1 04:39 T-Sheet-- Draft Copy was scanned into [employer] and attached to record. hs2 Administered Medications: 00:02 Not Given (Patient Refused): Acetaminophen Tablet 975 mg PO once jmb 00:08 Drug: NS 0.9% 1000 ml [sodium chloride 0.9 % intravenous solution] Route: IV; Rate: jmb bolus; Site: right antecubital; 01:03 Drug: Acetaminophen 975 mg [acetaminophen 325 mg tablet (3 tabs)] Route: PO; jmb 01:43 Drug: cefTRIAXone 1 grams [ceftriaxone 1 gram solution for injection] Route: IVPB; jmb Infused Over: 30 mins; Site: right antecubital; 01:43 Drug: Ciprofloxacin 500 mg [ciprofloxacin 500 mg tablet (1 tabs)] Route: PO; linda Signatures: Dispatcher [employer] Venice Bowser RN RN rs3 Andrey Valdivia, RPA-C RPA-Cck7 Ivan Dorado PA PA mo1 Becker, Joshua, RN RN jmb Arel, Yuliya Gordon, Reg Reg hs2 The chart was reviewed and I authenticate all verbal orders and agree with the evaluation and treatment provided.Corrections: (The following items were deleted from the chart) 00:53 08/16 23:42 UCG by Nursing ordered. ck7 ka4 Attachments: 08/17 00:35 [facility] Payment Agreement courtney 04:39 T-Sheet-- Draft Copy hs2 Chart Complete MTDD
--- NOTE | 2016-08-19 03:20 | EDDOCDS ---
Physician Documentation [facility] Name: Michaelle Morales Age: 31 yrs Sex: Female : 1985 Arrival Date: 08/16/2016 Time: 22:30 Bed I4 / M4 Private MD: NORTH Danielle Disposition: 08/17/16 01:48 Discharged to Home/Self Care. Impression: Urinary tract infection, site not specified - left pyelonephritis. - Condition is Stable. - Discharge Instructions: Pyelonephritis, Adult, Urinary Tract Infection, Urodynamic Testing, [id number]. - Prescriptions for Cipro 500 mg Oral Tablet - take 1 tablet by ORAL route every 12 hours; 20 tablet. ZOFRAN ODT 4 mg - dissolve 1 tablet by ORAL route 4 times per day As needed do not chew, do not swallow whole; 10 tablet. Diflucan 150 mg Oral Tablet - take 1 tablet by ORAL route one time for 1 day; 2 tablet. - Medication Reconciliation, Local Pharmacy Hours form. - Follow up: NORTH Danielle; When: 2 - 3 days; Reason: Recheck today's complaints, Continuance of care. Follow up: Sanket Carreon MD; When: Call to arrange an appointment; Reason: Recheck today's complaints, Continuance of care. - Problem is an acute exacerbation. - Symptoms are unchanged. Historical: - Allergies: no known allergies; - Home Meds: 1. none - PMHx: none; - PSHx: none; - Social history: Smoking status: Patient states was never smoker of tobacco. No barriers to communication noted, The patient speaks fluent Latvian. - Family history: Not pertinent. - : The pt / caregiver states he / she is not on anticoagulants. Home medication list is obtained from the patient. - Exposure Risk Screening:: None identified. 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 3 in. (160.02 cm); Pain 6/10; 08/17 01:00 Temp 100.5(O); jmb 01:53 BP 110 / 65 LA Sitting (auto/reg); Pulse 77 MON; Resp 20 S; Temp 99.5(T); Pulse Ox 100% cln on R/A; Pain 0/10; 08/16 22:32 Body Mass Index 35.43 (90.72 kg, 160.02 cm) elp MDM: 08/16 23:42 Undress patient appropriately for examination ordered. ck7 23:42 Acetaminophen Tablet 975 mg PO once ordered. ck7 23:42 NS 0.9% 1000 ml IV at bolus once ordered. ck7 23:43 IV Saline Lock ordered. ck7 23:43 NOTHING BY MOUTH+DIET ordered. EDMS 23:43 Amylase Ordered. EDMS 23:43 Basic Metabolic Profile Ordered. EDMS 23:43 CBC with Diff Ordered. EDMS 23:43 Lipase Ordered. EDMS 23:43 Liver Profile Ordered. EDMS 23:43 Urinalysis Ordered. EDMS 23:43 Urine Culture Ordered. EDMS 08/17 00:35 [facility] Payment Agreement was scanned into [email or web address] and attached to record. lja 00:35 Financial registration complete. lja 00:42 CBC with Diff Reviewed. ck7 00:55 UCG- In Lab Ordered. EDMS 01:03 Acetaminophen Tablet 975 mg PO once ordered. jmb 01:14 UCG- In Lab Reviewed. mo1 01:14 Lipase Reviewed. mo1 01:14 Amylase Reviewed. mo1 01:14 Urinalysis Reviewed. mo1 01:15 Liver Profile Reviewed. mo1 01:15 Basic Metabolic Profile Reviewed. mo1 01:33 cefTRIAXone 1 grams IVPB once over 30 mins; dilute in 50mL of NS or D5W ordered. mo1 01:33 Ciprofloxacin 500 mg PO once ordered. mo1 04:39 T-Sheet-- Draft Copy was scanned into [email or web address] and attached to record. hs2 Administered Medications: 00:02 Not Given (Patient Refused): Acetaminophen Tablet 975 mg PO once jmb 00:08 Drug: NS 0.9% 1000 ml [sodium chloride 0.9 % intravenous solution] Route: IV; Rate: jmb bolus; Site: right antecubital; 01:03 Drug: Acetaminophen 975 mg [acetaminophen 325 mg tablet (3 tabs)] Route: PO; jmb 01:43 Drug: cefTRIAXone 1 grams [ceftriaxone 1 gram solution for injection] Route: IVPB; jmb Infused Over: 30 mins; Site: right antecubital; 01:43 Drug: Ciprofloxacin 500 mg [ciprofloxacin 500 mg tablet (1 tabs)] Route: PO; linda Signatures: Dispatcher [employer] Venice Bowser RN RN rs3 Andrey Valdivia, RPA-C RPA-Cck7 Ivan Dorado PA PA mo1 Becker, Joshua, RN RN jmb Arel, Yuliya Gordon, Reg Reg hs2 The chart was reviewed and I authenticate all verbal orders and agree with the evaluation and treatment provided.Corrections: (The following items were deleted from the chart) 00:53 08/16 23:42 UCG by Nursing ordered. ck7 ka4 Attachments: 08/17 00:35 [facility] Payment Agreement courtney 04:39 T-Sheet-- Draft Copy hs2 Chart Complete MTDD
--- NOTE | 2016-08-20 15:22 | EDDOCDS ---
Physician Documentation [facility] Name: Michaelle Morales Age: 31 yrs Sex: Female : 1985 Arrival Date: 08/16/2016 Time: 22:30 Bed I4 / M4 Private MD: NORTH Danielle Disposition: 08/17/16 01:48 Discharged to Home/Self Care. Impression: Urinary tract infection, site not specified - left pyelonephritis. - Condition is Stable. - Discharge Instructions: Pyelonephritis, Adult, Urinary Tract Infection, Urodynamic Testing, [id number]. - Prescriptions for Cipro 500 mg Oral Tablet - take 1 tablet by ORAL route every 12 hours; 20 tablet. ZOFRAN ODT 4 mg - dissolve 1 tablet by ORAL route 4 times per day As needed do not chew, do not swallow whole; 10 tablet. Diflucan 150 mg Oral Tablet - take 1 tablet by ORAL route one time for 1 day; 2 tablet. - Medication Reconciliation, Local Pharmacy Hours form. - Follow up: NORTH Danielle; When: 2 - 3 days; Reason: Recheck today's complaints, Continuance of care. Follow up: Sanket Carreon MD; When: Call to arrange an appointment; Reason: Recheck today's complaints, Continuance of care. - Problem is an acute exacerbation. - Symptoms are unchanged. Historical: - Allergies: no known allergies; - Home Meds: 1. none - PMHx: none; - PSHx: none; - Social history: Smoking status: Patient states was never smoker of tobacco. No barriers to communication noted, The patient speaks fluent Slovenian. - Family history: Not pertinent. - : The pt / caregiver states he / she is not on anticoagulants. Home medication list is obtained from the patient. - Exposure Risk Screening:: None identified. 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 3 in. (160.02 cm); Pain 6/10; 08/17 01:00 Temp 100.5(O); jmb 01:53 BP 110 / 65 LA Sitting (auto/reg); Pulse 77 MON; Resp 20 S; Temp 99.5(T); Pulse Ox 100% cln on R/A; Pain 0/10; 08/16 22:32 Body Mass Index 35.43 (90.72 kg, 160.02 cm) elp MDM: 08/16 23:42 Undress patient appropriately for examination ordered. ck7 23:42 Acetaminophen Tablet 975 mg PO once ordered. ck7 23:42 NS 0.9% 1000 ml IV at bolus once ordered. ck7 23:43 IV Saline Lock ordered. ck7 23:43 NOTHING BY MOUTH+DIET ordered. EDMS 23:43 Amylase Ordered. EDMS 23:43 Basic Metabolic Profile Ordered. EDMS 23:43 CBC with Diff Ordered. EDMS 23:43 Lipase Ordered. EDMS 23:43 Liver Profile Ordered. EDMS 23:43 Urinalysis Ordered. EDMS 23:43 Urine Culture Ordered. EDMS 08/17 00:35 [facility] Payment Agreement was scanned into [employer] and attached to record. lja 00:35 Financial registration complete. lja 00:42 CBC with Diff Reviewed. ck7 00:55 UCG- In Lab Ordered. EDMS 01:03 Acetaminophen Tablet 975 mg PO once ordered. jmb 01:14 UCG- In Lab Reviewed. mo1 01:14 Lipase Reviewed. mo1 01:14 Amylase Reviewed. mo1 01:14 Urinalysis Reviewed. mo1 01:15 Liver Profile Reviewed. mo1 01:15 Basic Metabolic Profile Reviewed. mo1 01:33 cefTRIAXone 1 grams IVPB once over 30 mins; dilute in 50mL of NS or D5W ordered. mo1 01:33 Ciprofloxacin 500 mg PO once ordered. mo1 04:39 T-Sheet-- Draft Copy was scanned into [employer] and attached to record. hs2 Administered Medications: 00:02 Not Given (Patient Refused): Acetaminophen Tablet 975 mg PO once jmb 00:08 Drug: NS 0.9% 1000 ml [sodium chloride 0.9 % intravenous solution] Route: IV; Rate: jmb bolus; Site: right antecubital; 01:03 Drug: Acetaminophen 975 mg [acetaminophen 325 mg tablet (3 tabs)] Route: PO; jmb 01:43 Drug: cefTRIAXone 1 grams [ceftriaxone 1 gram solution for injection] Route: IVPB; jmb Infused Over: 30 mins; Site: right antecubital; 01:43 Drug: Ciprofloxacin 500 mg [ciprofloxacin 500 mg tablet (1 tabs)] Route: PO; linda Signatures: Dispatcher [employer] Venice Bowser RN RN rs3 Andrey Valdivia, RPA-C RPA-Cck7 Ivan Dorado PA PA mo1 Becker, Joshua, RN RN jmb Arel, Yuliya Gordon, Reg Reg hs2 The chart was reviewed and I authenticate all verbal orders and agree with the evaluation and treatment provided.Corrections: (The following items were deleted from the chart) 00:53 08/16 23:42 UCG by Nursing ordered. ck7 ka4 Attachments: 08/17 00:35 [facility] Payment Agreement lj 04:39 T-Sheet-- Draft Copy hs2 MTDD
--- NOTE | 2016-08-20 15:22 | EDDOCDS ---
Physician Documentation [facility] Name: Michaelle Morales Age: 31 yrs Sex: Female : 1985 Arrival Date: 08/16/2016 Time: 22:30 Bed I4 / M4 Private MD: NORTH Danielle Disposition: 08/17/16 01:48 Discharged to Home/Self Care. Impression: Urinary tract infection, site not specified - left pyelonephritis. - Condition is Stable. - Discharge Instructions: Pyelonephritis, Adult, Urinary Tract Infection, Urodynamic Testing, [id number]. - Prescriptions for Cipro 500 mg Oral Tablet - take 1 tablet by ORAL route every 12 hours; 20 tablet. ZOFRAN ODT 4 mg - dissolve 1 tablet by ORAL route 4 times per day As needed do not chew, do not swallow whole; 10 tablet. Diflucan 150 mg Oral Tablet - take 1 tablet by ORAL route one time for 1 day; 2 tablet. - Medication Reconciliation, Local Pharmacy Hours form. - Follow up: NORTH Danielle; When: 2 - 3 days; Reason: Recheck today's complaints, Continuance of care. Follow up: Sanket Carreon MD; When: Call to arrange an appointment; Reason: Recheck today's complaints, Continuance of care. - Problem is an acute exacerbation. - Symptoms are unchanged. Historical: - Allergies: no known allergies; - Home Meds: 1. none - PMHx: none; - PSHx: none; - Social history: Smoking status: Patient states was never smoker of tobacco. No barriers to communication noted, The patient speaks fluent Vietnamese. - Family history: Not pertinent. - : The pt / caregiver states he / she is not on anticoagulants. Home medication list is obtained from the patient. - Exposure Risk Screening:: None identified. 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 3 in. (160.02 cm); Pain 6/10; 08/17 01:00 Temp 100.5(O); jmb 01:53 BP 110 / 65 LA Sitting (auto/reg); Pulse 77 MON; Resp 20 S; Temp 99.5(T); Pulse Ox 100% cln on R/A; Pain 0/10; 08/16 22:32 Body Mass Index 35.43 (90.72 kg, 160.02 cm) elp MDM: 08/16 23:42 Undress patient appropriately for examination ordered. ck7 23:42 Acetaminophen Tablet 975 mg PO once ordered. ck7 23:42 NS 0.9% 1000 ml IV at bolus once ordered. ck7 23:43 IV Saline Lock ordered. ck7 23:43 NOTHING BY MOUTH+DIET ordered. EDMS 23:43 Amylase Ordered. EDMS 23:43 Basic Metabolic Profile Ordered. EDMS 23:43 CBC with Diff Ordered. EDMS 23:43 Lipase Ordered. EDMS 23:43 Liver Profile Ordered. EDMS 23:43 Urinalysis Ordered. EDMS 23:43 Urine Culture Ordered. EDMS 08/17 00:35 [facility] Payment Agreement was scanned into [employer] and attached to record. lja 00:35 Financial registration complete. lja 00:42 CBC with Diff Reviewed. ck7 00:55 UCG- In Lab Ordered. EDMS 01:03 Acetaminophen Tablet 975 mg PO once ordered. jmb 01:14 UCG- In Lab Reviewed. mo1 01:14 Lipase Reviewed. mo1 01:14 Amylase Reviewed. mo1 01:14 Urinalysis Reviewed. mo1 01:15 Liver Profile Reviewed. mo1 01:15 Basic Metabolic Profile Reviewed. mo1 01:33 cefTRIAXone 1 grams IVPB once over 30 mins; dilute in 50mL of NS or D5W ordered. mo1 01:33 Ciprofloxacin 500 mg PO once ordered. mo1 04:39 T-Sheet-- Draft Copy was scanned into [employer] and attached to record. hs2 Administered Medications: 00:02 Not Given (Patient Refused): Acetaminophen Tablet 975 mg PO once jmb 00:08 Drug: NS 0.9% 1000 ml [sodium chloride 0.9 % intravenous solution] Route: IV; Rate: jmb bolus; Site: right antecubital; 01:03 Drug: Acetaminophen 975 mg [acetaminophen 325 mg tablet (3 tabs)] Route: PO; jmb 01:43 Drug: cefTRIAXone 1 grams [ceftriaxone 1 gram solution for injection] Route: IVPB; jmb Infused Over: 30 mins; Site: right antecubital; 01:43 Drug: Ciprofloxacin 500 mg [ciprofloxacin 500 mg tablet (1 tabs)] Route: PO; linda Signatures: Dispatcher [employer] Venice Bowser RN RN rs3 Andrey Valdivia, RPA-C RPA-Cck7 Ivan Dorado PA PA mo1 Becker, Joshua, RN RN jmb Arel, Yuliya Gordon, Reg Reg hs2 The chart was reviewed and I authenticate all verbal orders and agree with the evaluation and treatment provided.Corrections: (The following items were deleted from the chart) 00:53 08/16 23:42 UCG by Nursing ordered. ck7 ka4 Attachments: 08/17 00:35 [facility] Payment Agreement lj 04:39 T-Sheet-- Draft Copy hs2 MTDD
--- NOTE | 2016-08-20 15:23 | EDDOCDS ---
Nurse's Notes [facility] Name: Michaelle Morales Age: 31 yrs Sex: Female : 1985 Arrival Date: 08/16/2016 Time: 22:30 Bed I4 / M4 Private MD: NORTH Danielle Diagnosis: Urinary tract infection, site not specified-left pyelonephritis Presentation: 08/16 22:34 Presenting complaint: Patient states: fever, chills and left flank pain for 2 days. h/o rs3 pyelonephritis. Acute neurological deficits are not present. Mechanism of Injury: No Mechanism of Injury. Adult Sepsis Screening: The patient does not have new or worsening altered mentation. Patient's respiratory rate is less than 22. Systolic blood pressure is greater than 100. Patient has a qSOFA score of 0- Negative Sepsis Screen. Suicide/Homicide risk assessment- the patient denies having any suicidal and/or homicidal ideations and does not present with any other emotional, behavioral or mental health complaints. Status: The patient is a dependent. Transition of care: patient was not received from another setting of care. 22:34 Acuity: WILLIAM Level 3 rs3 22:34 Method Of Arrival: Walkin/Carried/Asstd rs3 Triage Assessment: 22:35 General: Appears in no apparent distress. Pain: Location: left mid back. Pt Declines rs3 HIV testing. Musculoskeletal: Reports Pain is 7 out of 10 on a pain scale. 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 none - PMHx: none; - PSHx: none; - Social history: Smoking status: Patient states was never smoker of tobacco. No barriers to communication noted, The patient speaks fluent Nauruan. - Family history: Not pertinent. - : The pt / caregiver states he / she is not on anticoagulants. Home medication list is obtained from the patient. - Exposure Risk Screening:: None identified. Screenin/02 00:06 Screening information is obtained from the patient. Fall risk: No risks identified. jmb Assistance ADL's: requires no assistance with activities of daily living. Abuse/DV Screen: The patient / caregiver reports he/she is: not in a situation that causes fear, pain or injury. Nutritional screening: No deficits noted. home support is adequate. 02:18 Advance Directives: Currently, there is no health care proxy. There is no active DNR jmb order. There is no living will. There is no Power of Continuous Crusher Operator. Assessment: 00:06 General: Appears in no apparent distress, comfortable, Behavior is appropriate for age, jmb cooperative. Pain: Location: left mid back Pain currently is 6 out of 10 on a pain scale. Neurological: Level of Consciousness is awake, alert, obeys commands, Oriented to person, place, time, Hotel Service Supervisor are equal bilaterally Speech is normal, Facial symmetry appears normal, Facial symmetry: tongue is midline. Cardiovascular: Capillary refill < 3 seconds Heart tones present Pulses are all present. Rhythm is regular. Respiratory: Airway is patent Respiratory effort is even, unlabored, Respiratory pattern is regular, symmetrical, Breath sounds are clear bilaterally. GI: Abdomen is non- distended Bowel sounds present X 4 quads. hypoactive in right upper quadrant, left upper quadrant, right lower quadrant and left lower quadrant Abd is soft X 4 quads. Derm: Skin is pink, warm & dry. Musculoskeletal: Range of motion intact in all extremities. 00:09 General: Appears in no apparent distress, comfortable, well nourished, well groomed, ka4 Behavior is appropriate for age, cooperative, pleasant. Neurological: Level of Consciousness is awake, alert, obeys commands, Oriented to person, place, time, Hotel Service Supervisor are equal bilaterally Moves all extremities. Gait is steady, Speech is normal, Facial symmetry appears normal, Facial symmetry: tongue is midline. Cardiovascular: Capillary refill < 3 seconds in bilateral fingers toes. Respiratory: Airway is patent Respiratory effort is even, unlabored, Respiratory pattern is regular, symmetrical. Derm: Skin is intact, is healthy with good turgor, Skin is pink, warm & dry. 00:43 General: Appears in no apparent distress, comfortable, Behavior is appropriate for age, jmb cooperative, Patient up to bathroom. NO voiced complaints at this time.. Neurological: Level of Consciousness is awake, alert, obeys commands, Oriented to person, place, time. Respiratory: Airway is patent Respiratory effort is even, unlabored, Respiratory pattern is regular, symmetrical. 01:00 General: Ramiro GROSSMAN asked this technical writer and editor why patient did not receive Tylenol as jmb ordered originally. Provider made aware that patient only waned fluids, refused tylenol. Provider stated that if she refuses tylenol then she can sign an AMA. This technical writer and editor spoke with patient and explained reason for patient being ordered tylenol, patient was willing to take medication. Patient temperature taken orally, temperature 100.5 degrees fahreneheit. Patient took tylenol post recheck on temperature. . 02:18 General: Patient instructed on discharge instructions. Patient asked if there were any [facility] questions regarding discharge, patient stated no. IV discontinued per hospital policy. Patient signed discharge instructions. Patient discharged in stable condition. . Vital Signs: 08/16 22:32 BP 133 / 68; Pulse 102; Resp 20; Temp 101.3(O); Pulse Ox 100% ; Weight 90.72 kg; Height elp 5 ft. 3 in. (160.02 cm); Pain 6/10; 08/17 01:00 Temp 100.5(O); jmb 01:53 BP 110 / 65 LA Sitting (auto/reg); Pulse 77 MON; Resp 20 S; Temp 99.5(T); Pulse Ox 100% cln on R/A; Pain 0/10; 08/16 22:32 Body Mass Index 35.43 (90.72 kg, 160.02 cm) elp Vitals: 08/16 22:32 Log In Time: August 16, 2016 at 22:30. [facility] ED Course: 22:32 Patient visited by Tonja Lopez PCA. elp 22:32 NORTH Danielle is Private Physician. elp 22:32 Patient visited by Tonja Lopez PCA. elp 22:32 Patient moved to Waiting elp 22:32 Patient moved to Pre RCE elp 22:35 Triage Initiated rs3 23:20 Patient moved to Triage 2 kmg1 23:24 [facility]div[facility]-C [facility] ck7 23:24 Chapincito Carrillo DO is Attending Physician. ck7 23:24 Patient visited by Andrey Valdivia RPA-C. ck7 23:45 Patient moved to I4 / M4 km 08/17 00:06 The patient / caregiver is instructed regarding the plan of care and ED course. b 00:06 Inserted saline lock: 20 gauge in right antecubital area and blood collected. The b patient tolerated the procedure well. Labs drawn. (by ED staff). Sent per order to lab. 00:08 Patient visited by Tai Marks RN. jmb 00:08 Patient visited by Tai Marks RN. jmb 00:08 Amylase Sent. jmb 00:08 Basic Metabolic Profile Sent. jmb 00:08 CBC with Diff Sent. jmb 00:08 Lipase Sent. jmb 00:08 Liver Profile Sent. jmb 00:10 Patient visited by Latoya Hayden LPN. ka4 00:35 [facility] Payment Agreement was scanned into [employer] and attached to record. lja 00:44 Patient visited by Tai Marks RN. jmb 00:55 Patient visited by Latoya Hayden LPN. ka4 00:55 Urine collected. Clean catch specimen. Urine specimen sent to lab. ka4 00:55 UCG- In Lab Sent. ka4 00:56 PHCP role handed off by Andrey Valdivia RPA-C mo1 00:56 Ivan Dorado PA is PHCP. mo1 01:48 DIONNA Danielle is Referral Physician. mo1 01:48 Sanket Carreon MD is Referral Physician. mo1 01:54 Patient visited by Aleksandra Goins PCA. cln 02:18 Discontinued lock intact, bleeding controlled, pressure dressing applied, No jmb redness/swelling at site. No procedures done that require assistance. 04:39 T-Sheet-- Draft Copy was scanned into [employer] and attached to record. hs2 Administered Medications: 00:02 Not Given (Patient Refused): Acetaminophen Tablet 975 mg PO once jmb 00:08 Drug: NS 0.9% 1000 ml [sodium chloride 0.9 % intravenous solution] Route: IV; Rate: jmb bolus; Site: right antecubital; 01:03 Drug: Acetaminophen 975 mg [acetaminophen 325 mg tablet (3 tabs)] Route: PO; jmb 01:43 Drug: cefTRIAXone 1 grams [ceftriaxone 1 gram solution for injection] Route: IVPB; jmb Infused Over: 30 mins; Site: right antecubital; :43 Drug: Ciprofloxacin 500 mg [ciprofloxacin 500 mg tablet (1 tabs)] Route: PO; jmb Order Results: Lab Order: Amylase; SPEC'M 08/17/16 00:02 Test: AMYLASE; Value: 48; Range: 25-115; Units: U/L; Status: F Lab Order: Basic Metabolic Profile; SPEC08/17/16 00:02 Test: GLUCOSE, FASTING; Value: 105; Range: 70-105; Units: MG/DL; Status: F Test: BLOOD UREA NITROGEN; Value: 4; Range: 7-18; Abnormal: Below low normal; Units: MG/DL; Status: F Test: CREATININE FOR GFR; Value: 1.04; Range: 0.55-1.02; Abnormal: Above high normal; Units: MG/DL; Status: F Test: GLOMERULAR FILTRATION RATE; Value: > 60.0; Range: >60; Status: F Test: SODIUM LEVEL; Value: 136; Range: 136-145; Units: MEQ/L; Status: F Test: POTASSIUM SERUM; Value: 3.4; Range: 3.5-5.1; Abnormal: Below low normal; Units: MEQ/L; Status: F Test: CHLORIDE LEVEL; Value: 102; Range: 98-107; Units: MEQ/L; Status: F Test: CARBON DIOXIDE LEVEL; Value: 22; Range: 21-32; Units: MEQ/L; Status: F Test: ANION GAP; Value: 12; Range: 8-16; Units: MEQ/L; Status: F Test: CALCIUM LEVEL; Value: 8.4; Range: 8.5-10.1; Abnormal: Below low normal; Units: MG/DL; Status: F Test Note: ; Units are mL/min/1.73 m2 Chronic Kidney Disease Staging per NKF: Stage I & II GFR >=60 Normal to Mildly Decreased Stage III GFR 30-59 Moderately Decreased Stage IV GFR 15-29 Severely Decreased Stage V GFR <15 Very Little GFR Left ESRD GFR <15 on BIAS BINDING FOLDER Lab Order: CBC with Diff; SPEC08/17/16 00:02 Test: WHITE BLOOD COUNT; Value: 13.2; Range: 4.0-10.0; Abnormal: Above high normal; Units: K/mm3; Status: F Test: RED BLOOD COUNT; Value: 4.71; Range: 4.00-5.40; Units: M/mm3; Status: F Test: HEMOGLOBIN; Value: 12.8; Range: 12.0-16.0; Units: g/dl; Status: F Test: HEMATOCRIT; Value: 38.3; Range: 36.0-47.0; Units: %; Status: F Test: MEAN CORPUSCULAR VOLUME; Value: 81.4; Range: 80.0-96.0; Units: fl; Status: F Test: MEAN CORPUSCULAR HEMOGLOBIN; Value: 27.3; Range: 27.0-33.0; Units: pg; Status: F Test: MEAN CORPUSCULAR HGB CONC; Value: 33.5; Range: 32.0-36.5; Units: g/dl; Status: F Test: RED CELL DISTRIBUTION WIDTH; Value: 13.2; Range: 11.5-14.5; Units: %; Status: F Test: PLATELET COUNT, AUTOMATED; Value: 233; Range: 150-450; Units: k/mm3; Status: F Test: NEUTROPHILS %; Value: 76.8; Range: 36.0-66.0; Abnormal: Above high normal; Units: %; Status: F Test: LYMPH %; Value: 15.7; Range: 24.0-44.0; Abnormal: Below low normal; Units: %; Status: F Test: MONO %; Value: 5.1; Range: 0.0-5.0; Abnormal: Above high normal; Units: %; Status: F Test: EOS %; Value: 0.7; Range: 0.0-3.0; Units: %; Status: F Test: BASO %; Value: 0.7; Range: 0.0-1.0; Units: %; Status: F Test: LARGE UNSTAINED CELL %; Value: 1.1; Range: 0.0-4.0; Units: %; Status: F Test: NEUTROPHILS #; Value: 10.1; Range: 1.8-7.7; Abnormal: Above high normal; Units: K/mm3; Status: F Test: LYMPH #; Value: 2.2; Range: 1.5-4.5; Units: K/mm3; Status: F Test: MONO #; Value: 0.7; Range: 0.0-0.8; Units: K/mm3; Status: F Test: EOS #; Value: 0.1; Range: 0.0-0.50; Units: K/mm3; Status: F Test: BASO #; Value: 0.1; Range: 0.0-0.2; Units: K/mm3; Status: F Test: LARGE UNSTAINED CELL #; Value: 0.1; Range: 0.0-0.4; Units: K/mm3; Status: F Lab Order: Lipase; [facility] 08/17/16 00:02 Test: LIPASE; Value: 105; Range: 73-393; Units: U/L; Status: F Lab Order: Liver Profile; [facility] 08/17/16 00:02 Test: AST/SGOT; Value: 14; Range: 15-37; Abnormal: Below low normal; Units: U/L; Status: F Test: ALT/SGPT; Value: 15; Range: 12-78; Units: U/L; Status: F Test: ALKALINE PHOSPHATASE; Value: 62; Range: 45-117; Units: U/L; Status: F Test: BILIRUBIN,TOTAL; Value: 0.7; Range: 0.2-1.0; Units: MG/DL; Status: F Test: BILIRUBIN,DIRECT; Value: 0.3; Range: 0.0-0.2; Abnormal: Above high normal; Units: MG/DL; Status: F Test: TOTAL PROTEIN; Value: 8.4; Range: 6.4-8.2; Abnormal: Above high normal; Units: GM/DL; Status: F Test: ALBUMIN; Value: 4.0; Range: 3.2-5.2; Units: GM/DL; Status: F Test: ALBUMIN/GLOBULIN RATIO; Value: 0.91; Range: 1.00-1.93; Abnormal: Below low normal; Status: F Lab Order: Urinalysis; [facility] 08/17/16 00:48 Test: APPEARANCE, URINE; Value: CLEAR; Range: CLEAR; Status: F Test: COLOR, URINE; Value: STRAW; Range: YELLOW; Status: F Test: PH,URINE; Value: 7.0; Range: 5.0-9.0; Units: UNITS; Status: F Test: SPECIFIC GRAVITY URINE AUTO; Value: 1.000; Range: 1.002-1.035; Abnormal: Below low normal; Status: F Test: PROTEIN, URINE AUTO; Value: NEGATIVE; Range: NEGATIVE; Units: mg/dL; Status: F Test: GLUCOSE, URINE (UA) AUTO; Value: NEGATIVE; Range: NEGATIVE; Units: mg/dL; Status: F Test: KETONE, URINE AUTO; Value: NEGATIVE; Range: NEGATIVE; Units: mg/dL; Status: F Test: UROBILINOGEN, URINE AUTO; Value: 0.2; Range: 0.0-2.0; Units: mg/dL; Status: F Test: BILIRUBIN, URINE AUTO; Value: NEGATIVE; Range: NEGATIVE; Status: F Test: NITRITE, URINE AUTO; Value: NEGATIVE; Range: NEGATIVE; Status: F Test: LEUKOCYTE ESTERASE, URINE AUTO; Value: 3+; Range: NEGATIVE; Abnormal: Above high normal; Status: F Test: BLOOD, URINE BLOOD; Value: 1+; Range: NEGATIVE; Abnormal: Above high normal; Status: F Test: WBC, URINE AUTO; Value: 2; Range: 0-3; Units: /HPF; Status: F Test: RBC, URINE AUTO; Value: 0; Range: 0-3; Units: /HPF; Status: F Test: BACTERIA, URINE AUTO; Value: 1+; Range: NEGATIVE; Abnormal: Above high normal; Status: F Test: SQUAMOUS EPITHELIAL CELL UR AU; Value: 0; Range: 0-6; Units: /HPF; Status: F Test: HYALINE CAST, URINE AUTO; Value: 0; Range: 0-1; Units: /LPF; Status: F Lab Order: Urine Culture; SPEC'M 08/17/16 00:48 Test: URINE CULTURE; Value: ORGANISM 1: ESCHERICHIA COLI; Status: F Test: URINE CULTURE; Value: ESCHERICHIA COLI; Status: F Test: URINE CULTURE; Value: COLONY COUNT CFU/ml 50,000; Status: F Test: URINE CULTURE; Value: GRAM NEG SENSI - VITEK 80; Status: F Test: URINE CULTURE; Value: Method: VIT2; Status: F Test: URINE CULTURE; Value: EXTD BRD SPCTRM BETA LACTAMASE -; Status: F Test: URINE CULTURE; Value: TRIMETHOPRIM/SULFAMETHOXAZOLE <=20 S; Status: F Test: URINE CULTURE; Value: AMPICILLIN <=2 S; Status: F Test: URINE CULTURE; Value: GENTAMICIN <=1 S; Status: F Test: URINE CULTURE; Value: NITROFURANTOIN <=16 S; Status: F Test: URINE CULTURE; Value: CEFAZOLIN <=4 S; Status: F Test: URINE CULTURE; Value: LEVOFLOXACIN <=0.12 S; Status: F Test: URINE CULTURE; Value: TOBRAMYCIN <=1 S; Status: F Test: URINE CULTURE; Value: CEFTRIAXONE <=1 S; Status: F Test: URINE CULTURE; Value: CEFTAZIDIME <=1 S; Status: F Test: URINE CULTURE; Value: AMPICILLIN/SULBACTAM <=2 S; Status: F Test: URINE CULTURE; Value: PIPERACILLIN/TAZOBACTAM <=4 S; Status: F Test: URINE CULTURE; Value: AZTREONAM <=1 S; Status: F Test: URINE CULTURE; Value: ERTAPENEM <=0.5 S; Status: F Test: URINE CULTURE; Value: MEROPENEM <=0.25 S; Status: F Test: URINE CULTURE; Value: TIGECYCLINE <=0.5 S; Status: F Test: URINE CULTURE; Value: CEFEPIME <=1 S; Status: F Lab Order: UCG- In Lab; SPEC'M 08/17/16 00:48 Test: URINE PREG TEST; Value: NEGATIVE; Range: NEGATIVE; Status: F Outcome: 01:48 Discharge ordered by Provider. mo1 02:18 Discharge Assessment: Patient awake, alert and oriented x 3. No cognitive and/or jmb functional deficits noted. Patient verbalized understanding of disposition instructions. Patient awake and alert. obeys commands, Oriented to person, place and time. Patient verbalized understanding of disposition instructions. Patient has no functional deficits. patient administered narcotics - no. The following High Risk Discharge criteria are identified: None. Discharged to home ambulatory. Condition: stable. Discharge instructions given to patient, Instructed on discharge instructions, follow up and referral plans. medication usage, Demonstrated understanding of instructions, medications, Pt was receptive of discharge instructions/ teaching. Prescriptions given X 3. CT Study completed. Property sent home with patient. 02:19 Patient left the ED. jmb Addendum: 08/20/2016 15:21 Narrative: Urine culture results reviewed by CHAUNCEY Harp and no changes made. [facility] Signatures: Silvia Blue RN RN [facility] Jyoti Mccoy RN RN [facility] [place] Valdez RN RN rs3 Andrey Valdivia, RPA-C RPA-Cck7 Ivan Dorado PA PA mo1 Jessica, Tonja, PAINT PREPARER PAINT PREPARER matthewp Tai Marks,RN RN ellyb Latoya Hayden,ENGINE TESTING SUPERVISOR ENGINE TESTING SUPERVISOR ka4 Rasheedl, Yuliya Gordon, Reg Reg hs2 Buster, Crystal, PAINT PREPARER PAINT PREPARER cln MTDD
--- NOTE | 2016-08-20 15:25 | EDDOCDS ---
Physician Documentation [facility] Name: Michaelle Morales Age: 31 yrs Sex: Female : 1985 Arrival Date: 08/16/2016 Time: 22:30 Bed I4 / M4 Private MD: NORTH Danielle Disposition: 08/17/16 01:48 Discharged to Home/Self Care. Impression: Urinary tract infection, site not specified - left pyelonephritis. - Condition is Stable. - Discharge Instructions: Pyelonephritis, Adult, Urinary Tract Infection, Urodynamic Testing, Kvaw-fm-Ciox. - Prescriptions for Cipro 500 mg Oral Tablet - take 1 tablet by ORAL route every 12 hours; 20 tablet. ZOFRAN ODT 4 mg - dissolve 1 tablet by ORAL route 4 times per day As needed do not chew, do not swallow whole; 10 tablet. Diflucan 150 mg Oral Tablet - take 1 tablet by ORAL route one time for 1 day; 2 tablet. - Medication Reconciliation, Local Pharmacy Hours form. - Follow up: NORTH Danielle; When: 2 - 3 days; Reason: Recheck today's complaints, Continuance of care. Follow up: Sanket Carreon MD; When: Call to arrange an appointment; Reason: Recheck today's complaints, Continuance of care. - Problem is an acute exacerbation. - Symptoms are unchanged. Historical: - Allergies: no known allergies; - Home Meds: 1. none - PMHx: none; - PSHx: none; - Social history: Smoking status: Patient states was never smoker of tobacco. No barriers to communication noted, The patient speaks fluent Cuban. - Family history: Not pertinent. - : The pt / caregiver states he / she is not on anticoagulants. Home medication list is obtained from the patient. - Exposure Risk Screening:: None identified. 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 3 in. (160.02 cm); Pain 6/10; 08/17 01:00 Temp 100.5(O); jmb 01:53 BP 110 / 65 LA Sitting (auto/reg); Pulse 77 MON; Resp 20 S; Temp 99.5(T); Pulse Ox 100% cln on R/A; Pain 0/10; 08/16 22:32 Body Mass Index 35.43 (90.72 kg, 160.02 cm) elp MDM: 08/16 23:42 Undress patient appropriately for examination ordered. ck7 23:42 Acetaminophen Tablet 975 mg PO once ordered. ck7 23:42 NS 0.9% 1000 ml IV at bolus once ordered. ck7 23:43 IV Saline Lock ordered. ck7 23:43 NOTHING BY MOUTH+DIET ordered. EDMS 23:43 Amylase Ordered. EDMS 23:43 Basic Metabolic Profile Ordered. EDMS 23:43 CBC with Diff Ordered. EDMS 23:43 Lipase Ordered. EDMS 23:43 Liver Profile Ordered. EDMS 23:43 Urinalysis Ordered. EDMS 23:43 Urine Culture Ordered. EDMS 08/17 00:35 [facility] Payment Agreement was scanned into [employer] and attached to record. lja 00:35 Financial registration complete. lja 00:42 CBC with Diff Reviewed. ck7 00:55 UCG- In Lab Ordered. EDMS 01:03 Acetaminophen Tablet 975 mg PO once ordered. jmb 01:14 UCG- In Lab Reviewed. mo1 01:14 Lipase Reviewed. mo1 01:14 Amylase Reviewed. mo1 01:14 Urinalysis Reviewed. mo1 01:15 Liver Profile Reviewed. mo1 01:15 Basic Metabolic Profile Reviewed. mo1 01:33 cefTRIAXone 1 grams IVPB once over 30 mins; dilute in 50mL of NS or D5W ordered. mo1 01:33 Ciprofloxacin 500 mg PO once ordered. mo1 04:39 T-Sheet-- Draft Copy was scanned into [employer] and attached to record. hs2 Administered Medications: 00:02 Not Given (Patient Refused): Acetaminophen Tablet 975 mg PO once jmb 00:08 Drug: NS 0.9% 1000 ml [sodium chloride 0.9 % intravenous solution] Route: IV; Rate: jmb bolus; Site: right antecubital; 01:03 Drug: Acetaminophen 975 mg [acetaminophen 325 mg tablet (3 tabs)] Route: PO; jmb 01:43 Drug: cefTRIAXone 1 grams [ceftriaxone 1 gram solution for injection] Route: IVPB; jmb Infused Over: 30 mins; Site: right antecubital; 01:43 Drug: Ciprofloxacin 500 mg [ciprofloxacin 500 mg tablet (1 tabs)] Route: PO; linda Signatures: Dispatcher [employer] [place] Bowser RN RN rs3 Andrey Valdivia, RPA-C RPA-Cck7 Ivan Dorado PA PA mo1 Becker, Joshua, RN RN jmb Arel, Yuliya Gordon, Reg Reg hs2 The chart was reviewed and I authenticate all verbal orders and agree with the evaluation and treatment provided.Corrections: (The following items were deleted from the chart) 00:53 08/16 23:42 UCG by Nursing ordered. ck7 ka4 Attachments: 08/17 00:35 [facility] Payment Agreement courtney 04:39 T-Sheet-- Draft Copy hs2 Chart Complete MTDD
--- NOTE | 2016-08-20 15:25 | EDDOCDS ---
Physician Documentation [facility] Name: Michaelle Morales Age: 31 yrs Sex: Female : 1985 Arrival Date: 08/16/2016 Time: 22:30 Bed I4 / M4 Private MD: NORTH Danielle Disposition: 08/17/16 01:48 Discharged to Home/Self Care. Impression: Urinary tract infection, site not specified - left pyelonephritis. - Condition is Stable. - Discharge Instructions: Pyelonephritis, Adult, Urinary Tract Infection, Urodynamic Testing, [id number]. - Prescriptions for Cipro 500 mg Oral Tablet - take 1 tablet by ORAL route every 12 hours; 20 tablet. ZOFRAN ODT 4 mg - dissolve 1 tablet by ORAL route 4 times per day As needed do not chew, do not swallow whole; 10 tablet. Diflucan 150 mg Oral Tablet - take 1 tablet by ORAL route one time for 1 day; 2 tablet. - Medication Reconciliation, Local Pharmacy Hours form. - Follow up: NORTH Danielle; When: 2 - 3 days; Reason: Recheck today's complaints, Continuance of care. Follow up: Sanket Carreon MD; When: Call to arrange an appointment; Reason: Recheck today's complaints, Continuance of care. - Problem is an acute exacerbation. - Symptoms are unchanged. Historical: - Allergies: no known allergies; - Home Meds: 1. none - PMHx: none; - PSHx: none; - Social history: Smoking status: Patient states was never smoker of tobacco. No barriers to communication noted, The patient speaks fluent Surinamese. - Family history: Not pertinent. - : The pt / caregiver states he / she is not on anticoagulants. Home medication list is obtained from the patient. - Exposure Risk Screening:: None identified. 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 3 in. (160.02 cm); Pain 6/10; 08/17 01:00 Temp 100.5(O); jmb 01:53 BP 110 / 65 LA Sitting (auto/reg); Pulse 77 MON; Resp 20 S; Temp 99.5(T); Pulse Ox 100% cln on R/A; Pain 0/10; 08/16 22:32 Body Mass Index 35.43 (90.72 kg, 160.02 cm) elp MDM: 08/16 23:42 Undress patient appropriately for examination ordered. ck7 23:42 Acetaminophen Tablet 975 mg PO once ordered. ck7 23:42 NS 0.9% 1000 ml IV at bolus once ordered. ck7 23:43 IV Saline Lock ordered. ck7 23:43 NOTHING BY MOUTH+DIET ordered. EDMS 23:43 Amylase Ordered. EDMS 23:43 Basic Metabolic Profile Ordered. EDMS 23:43 CBC with Diff Ordered. EDMS 23:43 Lipase Ordered. EDMS 23:43 Liver Profile Ordered. EDMS 23:43 Urinalysis Ordered. EDMS 23:43 Urine Culture Ordered. EDMS 08/17 00:35 [facility] Payment Agreement was scanned into [employer] and attached to record. lja 00:35 Financial registration complete. lja 00:42 CBC with Diff Reviewed. ck7 00:55 UCG- In Lab Ordered. EDMS 01:03 Acetaminophen Tablet 975 mg PO once ordered. jmb 01:14 UCG- In Lab Reviewed. mo1 01:14 Lipase Reviewed. mo1 01:14 Amylase Reviewed. mo1 01:14 Urinalysis Reviewed. mo1 01:15 Liver Profile Reviewed. mo1 01:15 Basic Metabolic Profile Reviewed. mo1 01:33 cefTRIAXone 1 grams IVPB once over 30 mins; dilute in 50mL of NS or D5W ordered. mo1 01:33 Ciprofloxacin 500 mg PO once ordered. mo1 04:39 T-Sheet-- Draft Copy was scanned into [employer] and attached to record. hs2 Administered Medications: 00:02 Not Given (Patient Refused): Acetaminophen Tablet 975 mg PO once jmb 00:08 Drug: NS 0.9% 1000 ml [sodium chloride 0.9 % intravenous solution] Route: IV; Rate: jmb bolus; Site: right antecubital; 01:03 Drug: Acetaminophen 975 mg [acetaminophen 325 mg tablet (3 tabs)] Route: PO; jmb 01:43 Drug: cefTRIAXone 1 grams [ceftriaxone 1 gram solution for injection] Route: IVPB; jmb Infused Over: 30 mins; Site: right antecubital; 01:43 Drug: Ciprofloxacin 500 mg [ciprofloxacin 500 mg tablet (1 tabs)] Route: PO; linda Signatures: Dispatcher [employer] Venice Bowser RN RN rs3 Andrey Valdivia, RPA-C RPA-Cck7 Ivan Dorado PA PA mo1 Becker, Joshua, RN RN jmb Arel, Yuliya Gordon, Reg Reg hs2 The chart was reviewed and I authenticate all verbal orders and agree with the evaluation and treatment provided.Corrections: (The following items were deleted from the chart) 00:53 08/16 23:42 UCG by Nursing ordered. ck7 ka4 Attachments: 08/17 00:35 [facility] Payment Agreement courtney 04:39 T-Sheet-- Draft Copy hs2 Chart Complete MTDD
--- NOTE | 2016-08-20 15:25 | EDDOCDS ---
Nurse's Notes [facility] Name: Michaelle Morales Age: 31 yrs Sex: Female : 1985 Arrival Date: 08/16/2016 Time: 22:30 Bed I4 / M4 Private MD: NORTH Danielle Diagnosis: Urinary tract infection, site not specified-left pyelonephritis Presentation: 08/16 22:34 Presenting complaint: Patient states: fever, chills and left flank pain for 2 days. h/o rs3 pyelonephritis. Acute neurological deficits are not present. Mechanism of Injury: No Mechanism of Injury. Adult Sepsis Screening: The patient does not have new or worsening altered mentation. Patient's respiratory rate is less than 22. Systolic blood pressure is greater than 100. Patient has a qSOFA score of 0- Negative Sepsis Screen. Suicide/Homicide risk assessment- the patient denies having any suicidal and/or homicidal ideations and does not present with any other emotional, behavioral or mental health complaints. Status: The patient is a dependent. Transition of care: patient was not received from another setting of care. 22:34 Acuity: WILLIAM Level 3 rs3 22:34 Method Of Arrival: Walkin/Carried/Asstd rs3 Triage Assessment: 22:35 General: Appears in no apparent distress. Pain: Location: left mid back. Pt Declines rs3 HIV testing. Musculoskeletal: Reports Pain is 7 out of 10 on a pain scale. 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 none - PMHx: none; - PSHx: none; - Social history: Smoking status: Patient states was never smoker of tobacco. No barriers to communication noted, The patient speaks fluent Moroccan. - Family history: Not pertinent. - : The pt / caregiver states he / she is not on anticoagulants. Home medication list is obtained from the patient. - Exposure Risk Screening:: None identified. Screenin/02 00:06 Screening information is obtained from the patient. Fall risk: No risks identified. jmb Assistance ADL's: requires no assistance with activities of daily living. Abuse/DV Screen: The patient / caregiver reports he/she is: not in a situation that causes fear, pain or injury. Nutritional screening: No deficits noted. home support is adequate. 02:18 Advance Directives: Currently, there is no health care proxy. There is no active DNR jmb order. There is no living will. There is no Power of Music Artist. Assessment: 00:06 General: Appears in no apparent distress, comfortable, Behavior is appropriate for age, jmb cooperative. Pain: Location: left mid back Pain currently is 6 out of 10 on a pain scale. Neurological: Level of Consciousness is awake, alert, obeys commands, Oriented to person, place, time, Tactical Intelligence Officer are equal bilaterally Speech is normal, Facial symmetry appears normal, Facial symmetry: tongue is midline. Cardiovascular: Capillary refill < 3 seconds Heart tones present Pulses are all present. Rhythm is regular. Respiratory: Airway is patent Respiratory effort is even, unlabored, Respiratory pattern is regular, symmetrical, Breath sounds are clear bilaterally. GI: Abdomen is non- distended Bowel sounds present X 4 quads. hypoactive in right upper quadrant, left upper quadrant, right lower quadrant and left lower quadrant Abd is soft X 4 quads. Derm: Skin is pink, warm & dry. Musculoskeletal: Range of motion intact in all extremities. 00:09 General: Appears in no apparent distress, comfortable, well nourished, well groomed, ka4 Behavior is appropriate for age, cooperative, pleasant. Neurological: Level of Consciousness is awake, alert, obeys commands, Oriented to person, place, time, Tactical Intelligence Officer are equal bilaterally Moves all extremities. Gait is steady, Speech is normal, Facial symmetry appears normal, Facial symmetry: tongue is midline. Cardiovascular: Capillary refill < 3 seconds in bilateral fingers toes. Respiratory: Airway is patent Respiratory effort is even, unlabored, Respiratory pattern is regular, symmetrical. Derm: Skin is intact, is healthy with good turgor, Skin is pink, warm & dry. 00:43 General: Appears in no apparent distress, comfortable, Behavior is appropriate for age, jmb cooperative, Patient up to bathroom. NO voiced complaints at this time.. Neurological: Level of Consciousness is awake, alert, obeys commands, Oriented to person, place, time. Respiratory: Airway is patent Respiratory effort is even, unlabored, Respiratory pattern is regular, symmetrical. 01:00 General: Ramiro GROSSMAN asked this video game script writer why patient did not receive Tylenol as jmb ordered originally. Provider made aware that patient only waned fluids, refused tylenol. Provider stated that if she refuses tylenol then she can sign an AMA. This video game script writer spoke with patient and explained reason for patient being ordered tylenol, patient was willing to take medication. Patient temperature taken orally, temperature 100.5 degrees fahreneheit. Patient took tylenol post recheck on temperature. . 02:18 General: Patient instructed on discharge instructions. Patient asked if there were any [facility] questions regarding discharge, patient stated no. IV discontinued per hospital policy. Patient signed discharge instructions. Patient discharged in stable condition. . Vital Signs: 08/16 22:32 BP 133 / 68; Pulse 102; Resp 20; Temp 101.3(O); Pulse Ox 100% ; Weight 90.72 kg; Height elp 5 ft. 3 in. (160.02 cm); Pain 6/10; 08/17 01:00 Temp 100.5(O); jmb 01:53 BP 110 / 65 LA Sitting (auto/reg); Pulse 77 MON; Resp 20 S; Temp 99.5(T); Pulse Ox 100% cln on R/A; Pain 0/10; 08/16 22:32 Body Mass Index 35.43 (90.72 kg, 160.02 cm) elp Vitals: 08/16 22:32 Log In Time: August 16, 2016 at 22:30. [facility] ED Course: 22:32 Patient visited by Tonja Lopez PCA. elp 22:32 NORTH Danielle is Private Physician. elp 22:32 Patient visited by Tonja Lopez PCA. elp 22:32 Patient moved to Waiting elp 22:32 Patient moved to Pre RCE elp 22:35 Triage Initiated rs3 23:20 Patient moved to Triage 2 kmg1 23:24 [facility] ck7 23:24 Chapincito Carrillo DO is Attending Physician. ck7 23:24 Patient visited by Andrey Valdivia RPA-C. ck7 23:45 Patient moved to I4 / M4 km 08/17 00:06 The patient / caregiver is instructed regarding the plan of care and ED course. b 00:06 Inserted saline lock: 20 gauge in right antecubital area and blood collected. The b patient tolerated the procedure well. Labs drawn. (by ED staff). Sent per order to lab. 00:08 Patient visited by Tai Marks RN. jmb 00:08 Patient visited by Tai Marks RN. jmb 00:08 Amylase Sent. jmb 00:08 Basic Metabolic Profile Sent. jmb 00:08 CBC with Diff Sent. jmb 00:08 Lipase Sent. jmb 00:08 Liver Profile Sent. jmb 00:10 Patient visited by Latoya Hayden LPN. ka4 00:35 [facility] Payment Agreement was scanned into [employer] and attached to record. lja 00:44 Patient visited by Tai Marks RN. jmb 00:55 Patient visited by Latoya Hayden LPN. ka4 00:55 Urine collected. Clean catch specimen. Urine specimen sent to lab. ka4 00:55 UCG- In Lab Sent. ka4 00:56 PHCP role handed off by Andrey Valdivia RPA-C mo1 00:56 Ivan Dorado PA is PHCP. mo1 01:48 DIONNA Danielle is Referral Physician. mo1 01:48 Sanket Carreon MD is Referral Physician. mo1 01:54 Patient visited by Aleksandra Goins PCA. cln 02:18 Discontinued lock intact, bleeding controlled, pressure dressing applied, No jmb redness/swelling at site. No procedures done that require assistance. 04:39 T-Sheet-- Draft Copy was scanned into [employer] and attached to record. hs2 Administered Medications: 00:02 Not Given (Patient Refused): Acetaminophen Tablet 975 mg PO once jmb 00:08 Drug: NS 0.9% 1000 ml [sodium chloride 0.9 % intravenous solution] Route: IV; Rate: jmb bolus; Site: right antecubital; 01:03 Drug: Acetaminophen 975 mg [acetaminophen 325 mg tablet (3 tabs)] Route: PO; jmb 01:43 Drug: cefTRIAXone 1 grams [ceftriaxone 1 gram solution for injection] Route: IVPB; jmb Infused Over: 30 mins; Site: right antecubital; :43 Drug: Ciprofloxacin 500 mg [ciprofloxacin 500 mg tablet (1 tabs)] Route: PO; jmb Order Results: Lab Order: Amylase; SPEC'M 08/17/16 00:02 Test: AMYLASE; Value: 48; Range: 25-115; Units: U/L; Status: F Lab Order: Basic Metabolic Profile; SPEC08/17/16 00:02 Test: GLUCOSE, FASTING; Value: 105; Range: 70-105; Units: MG/DL; Status: F Test: BLOOD UREA NITROGEN; Value: 4; Range: 7-18; Abnormal: Below low normal; Units: MG/DL; Status: F Test: CREATININE FOR GFR; Value: 1.04; Range: 0.55-1.02; Abnormal: Above high normal; Units: MG/DL; Status: F Test: GLOMERULAR FILTRATION RATE; Value: > 60.0; Range: >60; Status: F Test: SODIUM LEVEL; Value: 136; Range: 136-145; Units: MEQ/L; Status: F Test: POTASSIUM SERUM; Value: 3.4; Range: 3.5-5.1; Abnormal: Below low normal; Units: MEQ/L; Status: F Test: CHLORIDE LEVEL; Value: 102; Range: 98-107; Units: MEQ/L; Status: F Test: CARBON DIOXIDE LEVEL; Value: 22; Range: 21-32; Units: MEQ/L; Status: F Test: ANION GAP; Value: 12; Range: 8-16; Units: MEQ/L; Status: F Test: CALCIUM LEVEL; Value: 8.4; Range: 8.5-10.1; Abnormal: Below low normal; Units: MG/DL; Status: F Test Note: ; Units are mL/min/1.73 m2 Chronic Kidney Disease Staging per NKF: Stage I & II GFR >=60 Normal to Mildly Decreased Stage III GFR 30-59 Moderately Decreased Stage IV GFR 15-29 Severely Decreased Stage V GFR <15 Very Little GFR Left ESRD GFR <15 on 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 Lab Order: CBC with Diff; SPEC08/17/16 00:02 Test: WHITE BLOOD COUNT; Value: 13.2; Range: 4.0-10.0; Abnormal: Above high normal; Units: K/mm3; Status: F Test: RED BLOOD COUNT; Value: 4.71; Range: 4.00-5.40; Units: M/mm3; Status: F Test: HEMOGLOBIN; Value: 12.8; Range: 12.0-16.0; Units: g/dl; Status: F Test: HEMATOCRIT; Value: 38.3; Range: 36.0-47.0; Units: %; Status: F Test: MEAN CORPUSCULAR VOLUME; Value: 81.4; Range: 80.0-96.0; Units: fl; Status: F Test: MEAN CORPUSCULAR HEMOGLOBIN; Value: 27.3; Range: 27.0-33.0; Units: pg; Status: F Test: MEAN CORPUSCULAR HGB CONC; Value: 33.5; Range: 32.0-36.5; Units: g/dl; Status: F Test: RED CELL DISTRIBUTION WIDTH; Value: 13.2; Range: 11.5-14.5; Units: %; Status: F Test: PLATELET COUNT, AUTOMATED; Value: 233; Range: 150-450; Units: k/mm3; Status: F Test: NEUTROPHILS %; Value: 76.8; Range: 36.0-66.0; Abnormal: Above high normal; Units: %; Status: F Test: LYMPH %; Value: 15.7; Range: 24.0-44.0; Abnormal: Below low normal; Units: %; Status: F Test: MONO %; Value: 5.1; Range: 0.0-5.0; Abnormal: Above high normal; Units: %; Status: F Test: EOS %; Value: 0.7; Range: 0.0-3.0; Units: %; Status: F Test: BASO %; Value: 0.7; Range: 0.0-1.0; Units: %; Status: F Test: LARGE UNSTAINED CELL %; Value: 1.1; Range: 0.0-4.0; Units: %; Status: F Test: NEUTROPHILS #; Value: 10.1; Range: 1.8-7.7; Abnormal: Above high normal; Units: K/mm3; Status: F Test: LYMPH #; Value: 2.2; Range: 1.5-4.5; Units: K/mm3; Status: F Test: MONO #; Value: 0.7; Range: 0.0-0.8; Units: K/mm3; Status: F Test: EOS #; Value: 0.1; Range: 0.0-0.50; Units: K/mm3; Status: F Test: BASO #; Value: 0.1; Range: 0.0-0.2; Units: K/mm3; Status: F Test: LARGE UNSTAINED CELL #; Value: 0.1; Range: 0.0-0.4; Units: K/mm3; Status: F Lab Order: Lipase; [facility] 08/17/16 00:02 Test: LIPASE; Value: 105; Range: 73-393; Units: U/L; Status: F Lab Order: Liver Profile; [facility] 08/17/16 00:02 Test: AST/SGOT; Value: 14; Range: 15-37; Abnormal: Below low normal; Units: U/L; Status: F Test: ALT/SGPT; Value: 15; Range: 12-78; Units: U/L; Status: F Test: ALKALINE PHOSPHATASE; Value: 62; Range: 45-117; Units: U/L; Status: F Test: BILIRUBIN,TOTAL; Value: 0.7; Range: 0.2-1.0; Units: MG/DL; Status: F Test: BILIRUBIN,DIRECT; Value: 0.3; Range: 0.0-0.2; Abnormal: Above high normal; Units: MG/DL; Status: F Test: TOTAL PROTEIN; Value: 8.4; Range: 6.4-8.2; Abnormal: Above high normal; Units: GM/DL; Status: F Test: ALBUMIN; Value: 4.0; Range: 3.2-5.2; Units: GM/DL; Status: F Test: ALBUMIN/GLOBULIN RATIO; Value: 0.91; Range: 1.00-1.93; Abnormal: Below low normal; Status: F Lab Order: Urinalysis; [facility] 08/17/16 00:48 Test: APPEARANCE, URINE; Value: CLEAR; Range: CLEAR; Status: F Test: COLOR, URINE; Value: STRAW; Range: YELLOW; Status: F Test: PH,URINE; Value: 7.0; Range: 5.0-9.0; Units: UNITS; Status: F Test: SPECIFIC GRAVITY URINE AUTO; Value: 1.000; Range: 1.002-1.035; Abnormal: Below low normal; Status: F Test: PROTEIN, URINE AUTO; Value: NEGATIVE; Range: NEGATIVE; Units: mg/dL; Status: F Test: GLUCOSE, URINE (UA) AUTO; Value: NEGATIVE; Range: NEGATIVE; Units: mg/dL; Status: F Test: KETONE, URINE AUTO; Value: NEGATIVE; Range: NEGATIVE; Units: mg/dL; Status: F Test: UROBILINOGEN, URINE AUTO; Value: 0.2; Range: 0.0-2.0; Units: mg/dL; Status: F Test: BILIRUBIN, URINE AUTO; Value: NEGATIVE; Range: NEGATIVE; Status: F Test: NITRITE, URINE AUTO; Value: NEGATIVE; Range: NEGATIVE; Status: F Test: LEUKOCYTE ESTERASE, URINE AUTO; Value: 3+; Range: NEGATIVE; Abnormal: Above high normal; Status: F Test: BLOOD, URINE BLOOD; Value: 1+; Range: NEGATIVE; Abnormal: Above high normal; Status: F Test: WBC, URINE AUTO; Value: 2; Range: 0-3; Units: /HPF; Status: F Test: RBC, URINE AUTO; Value: 0; Range: 0-3; Units: /HPF; Status: F Test: BACTERIA, URINE AUTO; Value: 1+; Range: NEGATIVE; Abnormal: Above high normal; Status: F Test: SQUAMOUS EPITHELIAL CELL UR AU; Value: 0; Range: 0-6; Units: /HPF; Status: F Test: HYALINE CAST, URINE AUTO; Value: 0; Range: 0-1; Units: /LPF; Status: F Lab Order: Urine Culture; SPEC'M 08/17/16 00:48 Test: URINE CULTURE; Value: ORGANISM 1: ESCHERICHIA COLI; Status: F Test: URINE CULTURE; Value: ESCHERICHIA COLI; Status: F Test: URINE CULTURE; Value: COLONY COUNT CFU/ml 50,000; Status: F Test: URINE CULTURE; Value: GRAM NEG SENSI - VITEK 80; Status: F Test: URINE CULTURE; Value: Method: VIT2; Status: F Test: URINE CULTURE; Value: EXTD BRD SPCTRM BETA LACTAMASE -; Status: F Test: URINE CULTURE; Value: TRIMETHOPRIM/SULFAMETHOXAZOLE <=20 S; Status: F Test: URINE CULTURE; Value: AMPICILLIN <=2 S; Status: F Test: URINE CULTURE; Value: GENTAMICIN <=1 S; Status: F Test: URINE CULTURE; Value: NITROFURANTOIN <=16 S; Status: F Test: URINE CULTURE; Value: CEFAZOLIN <=4 S; Status: F Test: URINE CULTURE; Value: LEVOFLOXACIN <=0.12 S; Status: F Test: URINE CULTURE; Value: TOBRAMYCIN <=1 S; Status: F Test: URINE CULTURE; Value: CEFTRIAXONE <=1 S; Status: F Test: URINE CULTURE; Value: CEFTAZIDIME <=1 S; Status: F Test: URINE CULTURE; Value: AMPICILLIN/SULBACTAM <=2 S; Status: F Test: URINE CULTURE; Value: PIPERACILLIN/TAZOBACTAM <=4 S; Status: F Test: URINE CULTURE; Value: AZTREONAM <=1 S; Status: F Test: URINE CULTURE; Value: ERTAPENEM <=0.5 S; Status: F Test: URINE CULTURE; Value: MEROPENEM <=0.25 S; Status: F Test: URINE CULTURE; Value: TIGECYCLINE <=0.5 S; Status: F Test: URINE CULTURE; Value: CEFEPIME <=1 S; Status: F Lab Order: UCG- In Lab; SPEC'M 08/17/16 00:48 Test: URINE PREG TEST; Value: NEGATIVE; Range: NEGATIVE; Status: F Outcome: 01:48 Discharge ordered by Provider. mo1 02:18 Discharge Assessment: Patient awake, alert and oriented x 3. No cognitive and/or jmb functional deficits noted. Patient verbalized understanding of disposition instructions. Patient awake and alert. obeys commands, Oriented to person, place and time. Patient verbalized understanding of disposition instructions. Patient has no functional deficits. patient administered narcotics - no. The following High Risk Discharge criteria are identified: None. Discharged to home ambulatory. Condition: stable. Discharge instructions given to patient, Instructed on discharge instructions, follow up and referral plans. medication usage, Demonstrated understanding of instructions, medications, Pt was receptive of discharge instructions/ teaching. Prescriptions given X 3. CT Study completed. Property sent home with patient. 02:19 Patient left the ED. jmb Addendum: 08/20/2016 15:21 Narrative: Urine culture results reviewed by CHAUNCEY Harp and no changes made. [facility] Signatures: Silvia Blue RN RN [facility] Jyoti Mccoy RN RN [facility] Venice Valdez RN RN rs3 Andrey Valdivia, RPA-C RPA-Cck7 Ivan Dorado PA PA mo1 Jessica, Tonja, JAVA SOFTWARE ARCHITECT JAVA SOFTWARE ARCHITECT matthewp Tai Marks,RN RN ellyb Latoya Hayden,ANNEALING FURNACE OPERATOR ANNEALING FURNACE OPERATOR ka4 Arel, Yuliya Gordon, Reg Reg hs2 Buster, Crystal, JAVA SOFTWARE ARCHITECT JAVA SOFTWARE ARCHITECT cln Chart Complete MTDD
--- NOTE | 2016-08-20 17:15 | EDDOCDS ---
Physician Documentation [facility] Name: Michaelle Morales Age: 31 yrs Sex: Female : 1985 Arrival Date: 08/16/2016 Time: 22:30 Bed I4 / M4 Private MD: NORTH Danielle Disposition: 08/17/16 01:48 Discharged to Home/Self Care. Impression: Urinary tract infection, site not specified - left pyelonephritis. - Condition is Stable. - Discharge Instructions: Pyelonephritis, Adult, Urinary Tract Infection, Urodynamic Testing, [id number]. - Prescriptions for Cipro 500 mg Oral Tablet - take 1 tablet by ORAL route every 12 hours; 20 tablet. ZOFRAN ODT 4 mg - dissolve 1 tablet by ORAL route 4 times per day As needed do not chew, do not swallow whole; 10 tablet. Diflucan 150 mg Oral Tablet - take 1 tablet by ORAL route one time for 1 day; 2 tablet. - Medication Reconciliation, Local Pharmacy Hours form. - Follow up: NORTH Danielle; When: 2 - 3 days; Reason: Recheck today's complaints, Continuance of care. Follow up: Sanket Carreon MD; When: Call to arrange an appointment; Reason: Recheck today's complaints, Continuance of care. - Problem is an acute exacerbation. - Symptoms are unchanged. Historical: - Allergies: no known allergies; - Home Meds: 1. none - PMHx: none; - PSHx: none; - Social history: Smoking status: Patient states was never smoker of tobacco. No barriers to communication noted, The patient speaks fluent Thai. - Family history: Not pertinent. - : The pt / caregiver states he / she is not on anticoagulants. Home medication list is obtained from the patient. - Exposure Risk Screening:: None identified. 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 3 in. (160.02 cm); Pain 6/10; 08/17 01:00 Temp 100.5(O); jmb 01:53 BP 110 / 65 LA Sitting (auto/reg); Pulse 77 MON; Resp 20 S; Temp 99.5(T); Pulse Ox 100% cln on R/A; Pain 0/10; 08/16 22:32 Body Mass Index 35.43 (90.72 kg, 160.02 cm) elp MDM: 08/16 23:42 Undress patient appropriately for examination ordered. ck7 23:42 Acetaminophen Tablet 975 mg PO once ordered. ck7 23:42 NS 0.9% 1000 ml IV at bolus once ordered. ck7 23:43 IV Saline Lock ordered. ck7 23:43 NOTHING BY MOUTH+DIET ordered. EDMS 23:43 Amylase Ordered. EDMS 23:43 Basic Metabolic Profile Ordered. EDMS 23:43 CBC with Diff Ordered. EDMS 23:43 Lipase Ordered. EDMS 23:43 Liver Profile Ordered. EDMS 23:43 Urinalysis Ordered. EDMS 23:43 Urine Culture Ordered. EDMS 08/17 00:35 [facility] Payment Agreement was scanned into [employer] and attached to record. lja 00:35 Financial registration complete. lja 00:42 CBC with Diff Reviewed. ck7 00:55 UCG- In Lab Ordered. EDMS 01:03 Acetaminophen Tablet 975 mg PO once ordered. jmb 01:14 UCG- In Lab Reviewed. mo1 01:14 Lipase Reviewed. mo1 01:14 Amylase Reviewed. mo1 01:14 Urinalysis Reviewed. mo1 01:15 Liver Profile Reviewed. mo1 01:15 Basic Metabolic Profile Reviewed. mo1 01:33 cefTRIAXone 1 grams IVPB once over 30 mins; dilute in 50mL of NS or D5W ordered. mo1 01:33 Ciprofloxacin 500 mg PO once ordered. mo1 04:39 T-Sheet-- Draft Copy was scanned into [employer] and attached to record. hs2 Administered Medications: 00:02 Not Given (Patient Refused): Acetaminophen Tablet 975 mg PO once jmb 00:08 Drug: NS 0.9% 1000 ml [sodium chloride 0.9 % intravenous solution] Route: IV; Rate: jmb bolus; Site: right antecubital; 01:03 Drug: Acetaminophen 975 mg [acetaminophen 325 mg tablet (3 tabs)] Route: PO; jmb 01:43 Drug: cefTRIAXone 1 grams [ceftriaxone 1 gram solution for injection] Route: IVPB; jmb Infused Over: 30 mins; Site: right antecubital; 01:43 Drug: Ciprofloxacin 500 mg [ciprofloxacin 500 mg tablet (1 tabs)] Route: PO; linda Signatures: Dispatcher [employer] Venice Bowser RN RN rs3 Andrey Valdivia, RPA-C RPA-Cck7 Ivan Dorado PA PA mo1 Becker, Joshua, RN RN jmb Arel, Yuliya Gordon, Reg Reg hs2 The chart was reviewed and I authenticate all verbal orders and agree with the evaluation and treatment provided.Corrections: (The following items were deleted from the chart) 00:53 08/16 23:42 UCG by Nursing ordered. ck7 ka4 Attachments: 08/17 00:35 [facility] Payment Agreement courtney 04:39 T-Sheet-- Draft Copy hs2 Chart Complete MTDD
--- NOTE | 2016-08-20 17:15 | EDDOCDS ---
Nurse's Notes [facility] Name: Michaelle Morales Age: 31 yrs Sex: Female : 1985 Arrival Date: 08/16/2016 Time: 22:30 Bed I4 / M4 Private MD: NORTH Danielle Diagnosis: Urinary tract infection, site not specified-left pyelonephritis Presentation: 08/16 22:34 Presenting complaint: Patient states: fever, chills and left flank pain for 2 days. h/o rs3 pyelonephritis. Acute neurological deficits are not present. Mechanism of Injury: No Mechanism of Injury. Adult Sepsis Screening: The patient does not have new or worsening altered mentation. Patient's respiratory rate is less than 22. Systolic blood pressure is greater than 100. Patient has a qSOFA score of 0- Negative Sepsis Screen. Suicide/Homicide risk assessment- the patient denies having any suicidal and/or homicidal ideations and does not present with any other emotional, behavioral or mental health complaints. Status: The patient is a dependent. Transition of care: patient was not received from another setting of care. 22:34 Acuity: WILLIAM Level 3 rs3 22:34 Method Of Arrival: Walkin/Carried/Asstd rs3 Triage Assessment: 22:35 General: Appears in no apparent distress. Pain: Location: left mid back. Pt Declines rs3 HIV testing. Musculoskeletal: Reports Pain is 7 out of 10 on a pain scale. 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 none - PMHx: none; - PSHx: none; - Social history: Smoking status: Patient states was never smoker of tobacco. No barriers to communication noted, The patient speaks fluent Singaporean. - Family history: Not pertinent. - : The pt / caregiver states he / she is not on anticoagulants. Home medication list is obtained from the patient. - Exposure Risk Screening:: None identified. Screenin/02 00:06 Screening information is obtained from the patient. Fall risk: No risks identified. jmb Assistance ADL's: requires no assistance with activities of daily living. Abuse/DV Screen: The patient / caregiver reports he/she is: not in a situation that causes fear, pain or injury. Nutritional screening: No deficits noted. home support is adequate. 02:18 Advance Directives: Currently, there is no health care proxy. There is no active DNR jmb order. There is no living will. There is no Power of Divinity Teacher. Assessment: 00:06 General: Appears in no apparent distress, comfortable, Behavior is appropriate for age, jmb cooperative. Pain: Location: left mid back Pain currently is 6 out of 10 on a pain scale. Neurological: Level of Consciousness is awake, alert, obeys commands, Oriented to person, place, time, Technical Assoc are equal bilaterally Speech is normal, Facial symmetry appears normal, Facial symmetry: tongue is midline. Cardiovascular: Capillary refill < 3 seconds Heart tones present Pulses are all present. Rhythm is regular. Respiratory: Airway is patent Respiratory effort is even, unlabored, Respiratory pattern is regular, symmetrical, Breath sounds are clear bilaterally. GI: Abdomen is non- distended Bowel sounds present X 4 quads. hypoactive in right upper quadrant, left upper quadrant, right lower quadrant and left lower quadrant Abd is soft X 4 quads. Derm: Skin is pink, warm & dry. Musculoskeletal: Range of motion intact in all extremities. 00:09 General: Appears in no apparent distress, comfortable, well nourished, well groomed, ka4 Behavior is appropriate for age, cooperative, pleasant. Neurological: Level of Consciousness is awake, alert, obeys commands, Oriented to person, place, time, Technical Assoc are equal bilaterally Moves all extremities. Gait is steady, Speech is normal, Facial symmetry appears normal, Facial symmetry: tongue is midline. Cardiovascular: Capillary refill < 3 seconds in bilateral fingers toes. Respiratory: Airway is patent Respiratory effort is even, unlabored, Respiratory pattern is regular, symmetrical. Derm: Skin is intact, is healthy with good turgor, Skin is pink, warm & dry. 00:43 General: Appears in no apparent distress, comfortable, Behavior is appropriate for age, jmb cooperative, Patient up to bathroom. NO voiced complaints at this time.. Neurological: Level of Consciousness is awake, alert, obeys commands, Oriented to person, place, time. Respiratory: Airway is patent Respiratory effort is even, unlabored, Respiratory pattern is regular, symmetrical. 01:00 General: Ramiro GROSSMAN asked this entry writer why patient did not receive Tylenol as jmb ordered originally. Provider made aware that patient only waned fluids, refused tylenol. Provider stated that if she refuses tylenol then she can sign an AMA. This entry writer spoke with patient and explained reason for patient being ordered tylenol, patient was willing to take medication. Patient temperature taken orally, temperature 100.5 degrees fahreneheit. Patient took tylenol post recheck on temperature. . 02:18 General: Patient instructed on discharge instructions. Patient asked if there were any [facility] questions regarding discharge, patient stated no. IV discontinued per hospital policy. Patient signed discharge instructions. Patient discharged in stable condition. . Vital Signs: 08/16 22:32 BP 133 / 68; Pulse 102; Resp 20; Temp 101.3(O); Pulse Ox 100% ; Weight 90.72 kg; Height elp 5 ft. 3 in. (160.02 cm); Pain 6/10; 08/17 01:00 Temp 100.5(O); jmb 01:53 BP 110 / 65 LA Sitting (auto/reg); Pulse 77 MON; Resp 20 S; Temp 99.5(T); Pulse Ox 100% cln on R/A; Pain 0/10; 08/16 22:32 Body Mass Index 35.43 (90.72 kg, 160.02 cm) elp Vitals: 08/16 22:32 Log In Time: August 16, 2016 at 22:30. [facility] ED Course: 22:32 Patient visited by Tonja Lopez PCA. elp 22:32 NORTH Danielle is Private Physician. elp 22:32 Patient visited by Tonja Lopez PCA. elp 22:32 Patient moved to Waiting elp 22:32 Patient moved to Pre RCE elp 22:35 Triage Initiated rs3 23:20 Patient moved to Triage 2 kmg1 23:24 And[facility] Valdivia [facility]C [facility] ck7 23:24 Chapincito Carrillo DO is Attending Physician. ck7 23:24 Patient visited by Andrey Valdivia RPA-C. ck7 23:45 Patient moved to I4 / M4 km 08/17 00:06 The patient / caregiver is instructed regarding the plan of care and ED course. b 00:06 Inserted saline lock: 20 gauge in right antecubital area and blood collected. The b patient tolerated the procedure well. Labs drawn. (by ED staff). Sent per order to lab. 00:08 Patient visited by Tai Marks RN. jmb 00:08 Patient visited by Tai Marks RN. jmb 00:08 Amylase Sent. jmb 00:08 Basic Metabolic Profile Sent. jmb 00:08 CBC with Diff Sent. jmb 00:08 Lipase Sent. jmb 00:08 Liver Profile Sent. jmb 00:10 Patient visited by Latoya Hayden LPN. ka4 00:35 REPLACED BY [facility] Payment Agreement was scanned into [email or web address] and attached to record. lja 00:44 Patient visited by Tai Marks RN. jmb 00:55 Patient visited by Latoya Hayden LPN. ka4 00:55 Urine collected. Clean catch specimen. Urine specimen sent to lab. ka4 00:55 UCG- In Lab Sent. ka4 00:56 PHCP role handed off by Andrey Valdivia RPA-C mo1 00:56 Ivan Dorado PA is PHCP. mo1 01:48 DIONNA Danielle is Referral Physician. mo1 01:48 Sanket Carreon MD is Referral Physician. mo1 01:54 Patient visited by Aleksandra Goins PCA. cln 02:18 Discontinued lock intact, bleeding controlled, pressure dressing applied, No jmb redness/swelling at site. No procedures done that require assistance. 04:39 T-Sheet-- Draft Copy was scanned into [email or web address] and attached to record. hs2 Administered Medications: 00:02 Not Given (Patient Refused): Acetaminophen Tablet 975 mg PO once jmb 00:08 Drug: NS 0.9% 1000 ml [sodium chloride 0.9 % intravenous solution] Route: IV; Rate: jmb bolus; Site: right antecubital; 01:03 Drug: Acetaminophen 975 mg [acetaminophen 325 mg tablet (3 tabs)] Route: PO; jmb 01:43 Drug: cefTRIAXone 1 grams [ceftriaxone 1 gram solution for injection] Route: IVPB; jmb Infused Over: 30 mins; Site: right antecubital; :43 Drug: Ciprofloxacin 500 mg [ciprofloxacin 500 mg tablet (1 tabs)] Route: PO; jmb Order Results: Lab Order: Amylase; SPEC'M 08/17/16 00:02 Test: AMYLASE; Value: 48; Range: 25-115; Units: U/L; Status: F Lab Order: Basic Metabolic Profile; SPEC08/17/16 00:02 Test: GLUCOSE, FASTING; Value: 105; Range: 70-105; Units: MG/DL; Status: F Test: BLOOD UREA NITROGEN; Value: 4; Range: 7-18; Abnormal: Below low normal; Units: MG/DL; Status: F Test: CREATININE FOR GFR; Value: 1.04; Range: 0.55-1.02; Abnormal: Above high normal; Units: MG/DL; Status: F Test: GLOMERULAR FILTRATION RATE; Value: > 60.0; Range: >60; Status: F Test: SODIUM LEVEL; Value: 136; Range: 136-145; Units: MEQ/L; Status: F Test: POTASSIUM SERUM; Value: 3.4; Range: 3.5-5.1; Abnormal: Below low normal; Units: MEQ/L; Status: F Test: CHLORIDE LEVEL; Value: 102; Range: 98-107; Units: MEQ/L; Status: F Test: CARBON DIOXIDE LEVEL; Value: 22; Range: 21-32; Units: MEQ/L; Status: F Test: ANION GAP; Value: 12; Range: 8-16; Units: MEQ/L; Status: F Test: CALCIUM LEVEL; Value: 8.4; Range: 8.5-10.1; Abnormal: Below low normal; Units: MG/DL; Status: F Test Note: ; Units are mL/min/1.73 m2 Chronic Kidney Disease Staging per NKF: Stage I & II GFR >=60 Normal to Mildly Decreased Stage III GFR 30-59 Moderately Decreased Stage IV GFR 15-29 Severely Decreased Stage V GFR <15 Very Little GFR Left ESRD GFR <15 on ASSOCIATE PROFESSOR OF ENGLISH Lab Order: CBC with Diff; SPEC08/17/16 00:02 Test: WHITE BLOOD COUNT; Value: 13.2; Range: 4.0-10.0; Abnormal: Above high normal; Units: K/mm3; Status: F Test: RED BLOOD COUNT; Value: 4.71; Range: 4.00-5.40; Units: M/mm3; Status: F Test: HEMOGLOBIN; Value: 12.8; Range: 12.0-16.0; Units: g/dl; Status: F Test: HEMATOCRIT; Value: 38.3; Range: 36.0-47.0; Units: %; Status: F Test: MEAN CORPUSCULAR VOLUME; Value: 81.4; Range: 80.0-96.0; Units: fl; Status: F Test: MEAN CORPUSCULAR HEMOGLOBIN; Value: 27.3; Range: 27.0-33.0; Units: pg; Status: F Test: MEAN CORPUSCULAR HGB CONC; Value: 33.5; Range: 32.0-36.5; Units: g/dl; Status: F Test: RED CELL DISTRIBUTION WIDTH; Value: 13.2; Range: 11.5-14.5; Units: %; Status: F Test: PLATELET COUNT, AUTOMATED; Value: 233; Range: 150-450; Units: k/mm3; Status: F Test: NEUTROPHILS %; Value: 76.8; Range: 36.0-66.0; Abnormal: Above high normal; Units: %; Status: F Test: LYMPH %; Value: 15.7; Range: 24.0-44.0; Abnormal: Below low normal; Units: %; Status: F Test: MONO %; Value: 5.1; Range: 0.0-5.0; Abnormal: Above high normal; Units: %; Status: F Test: EOS %; Value: 0.7; Range: 0.0-3.0; Units: %; Status: F Test: BASO %; Value: 0.7; Range: 0.0-1.0; Units: %; Status: F Test: LARGE UNSTAINED CELL %; Value: 1.1; Range: 0.0-4.0; Units: %; Status: F Test: NEUTROPHILS #; Value: 10.1; Range: 1.8-7.7; Abnormal: Above high normal; Units: K/mm3; Status: F Test: LYMPH #; Value: 2.2; Range: 1.5-4.5; Units: K/mm3; Status: F Test: MONO #; Value: 0.7; Range: 0.0-0.8; Units: K/mm3; Status: F Test: EOS #; Value: 0.1; Range: 0.0-0.50; Units: K/mm3; Status: F Test: BASO #; Value: 0.1; Range: 0.0-0.2; Units: K/mm3; Status: F Test: LARGE UNSTAINED CELL #; Value: 0.1; Range: 0.0-0.4; Units: K/mm3; Status: F Lab Order: Lipase; [facility] 08/17/16 00:02 Test: LIPASE; Value: 105; Range: 73-393; Units: U/L; Status: F Lab Order: Liver Profile; [facility] 08/17/16 00:02 Test: AST/SGOT; Value: 14; Range: 15-37; Abnormal: Below low normal; Units: U/L; Status: F Test: ALT/SGPT; Value: 15; Range: 12-78; Units: U/L; Status: F Test: ALKALINE PHOSPHATASE; Value: 62; Range: 45-117; Units: U/L; Status: F Test: BILIRUBIN,TOTAL; Value: 0.7; Range: 0.2-1.0; Units: MG/DL; Status: F Test: BILIRUBIN,DIRECT; Value: 0.3; Range: 0.0-0.2; Abnormal: Above high normal; Units: MG/DL; Status: F Test: TOTAL PROTEIN; Value: 8.4; Range: 6.4-8.2; Abnormal: Above high normal; Units: GM/DL; Status: F Test: ALBUMIN; Value: 4.0; Range: 3.2-5.2; Units: GM/DL; Status: F Test: ALBUMIN/GLOBULIN RATIO; Value: 0.91; Range: 1.00-1.93; Abnormal: Below low normal; Status: F Lab Order: Urinalysis; [facility] 08/17/16 00:48 Test: APPEARANCE, URINE; Value: CLEAR; Range: CLEAR; Status: F Test: COLOR, URINE; Value: STRAW; Range: YELLOW; Status: F Test: PH,URINE; Value: 7.0; Range: 5.0-9.0; Units: UNITS; Status: F Test: SPECIFIC GRAVITY URINE AUTO; Value: 1.000; Range: 1.002-1.035; Abnormal: Below low normal; Status: F Test: PROTEIN, URINE AUTO; Value: NEGATIVE; Range: NEGATIVE; Units: mg/dL; Status: F Test: GLUCOSE, URINE (UA) AUTO; Value: NEGATIVE; Range: NEGATIVE; Units: mg/dL; Status: F Test: KETONE, URINE AUTO; Value: NEGATIVE; Range: NEGATIVE; Units: mg/dL; Status: F Test: UROBILINOGEN, URINE AUTO; Value: 0.2; Range: 0.0-2.0; Units: mg/dL; Status: F Test: BILIRUBIN, URINE AUTO; Value: NEGATIVE; Range: NEGATIVE; Status: F Test: NITRITE, URINE AUTO; Value: NEGATIVE; Range: NEGATIVE; Status: F Test: LEUKOCYTE ESTERASE, URINE AUTO; Value: 3+; Range: NEGATIVE; Abnormal: Above high normal; Status: F Test: BLOOD, URINE BLOOD; Value: 1+; Range: NEGATIVE; Abnormal: Above high normal; Status: F Test: WBC, URINE AUTO; Value: 2; Range: 0-3; Units: /HPF; Status: F Test: RBC, URINE AUTO; Value: 0; Range: 0-3; Units: /HPF; Status: F Test: BACTERIA, URINE AUTO; Value: 1+; Range: NEGATIVE; Abnormal: Above high normal; Status: F Test: SQUAMOUS EPITHELIAL CELL UR AU; Value: 0; Range: 0-6; Units: /HPF; Status: F Test: HYALINE CAST, URINE AUTO; Value: 0; Range: 0-1; Units: /LPF; Status: F Lab Order: Urine Culture; SPEC'M 08/17/16 00:48 Test: URINE CULTURE; Value: ORGANISM 1: ESCHERICHIA COLI; Status: F Test: URINE CULTURE; Value: ESCHERICHIA COLI; Status: F Test: URINE CULTURE; Value: COLONY COUNT CFU/ml 50,000; Status: F Test: URINE CULTURE; Value: GRAM NEG SENSI - VITEK 80; Status: F Test: URINE CULTURE; Value: Method: VIT2; Status: F Test: URINE CULTURE; Value: EXTD BRD SPCTRM BETA LACTAMASE -; Status: F Test: URINE CULTURE; Value: TRIMETHOPRIM/SULFAMETHOXAZOLE <=20 S; Status: F Test: URINE CULTURE; Value: AMPICILLIN <=2 S; Status: F Test: URINE CULTURE; Value: GENTAMICIN <=1 S; Status: F Test: URINE CULTURE; Value: NITROFURANTOIN <=16 S; Status: F Test: URINE CULTURE; Value: CEFAZOLIN <=4 S; Status: F Test: URINE CULTURE; Value: LEVOFLOXACIN <=0.12 S; Status: F Test: URINE CULTURE; Value: TOBRAMYCIN <=1 S; Status: F Test: URINE CULTURE; Value: CEFTRIAXONE <=1 S; Status: F Test: URINE CULTURE; Value: CEFTAZIDIME <=1 S; Status: F Test: URINE CULTURE; Value: AMPICILLIN/SULBACTAM <=2 S; Status: F Test: URINE CULTURE; Value: PIPERACILLIN/TAZOBACTAM <=4 S; Status: F Test: URINE CULTURE; Value: AZTREONAM <=1 S; Status: F Test: URINE CULTURE; Value: ERTAPENEM <=0.5 S; Status: F Test: URINE CULTURE; Value: MEROPENEM <=0.25 S; Status: F Test: URINE CULTURE; Value: TIGECYCLINE <=0.5 S; Status: F Test: URINE CULTURE; Value: CEFEPIME <=1 S; Status: F Lab Order: UCG- In Lab; SPEC'M 08/17/16 00:48 Test: URINE PREG TEST; Value: NEGATIVE; Range: NEGATIVE; Status: F Outcome: 01:48 Discharge ordered by Provider. mo1 02:18 Discharge Assessment: Patient awake, alert and oriented x 3. No cognitive and/or jmb functional deficits noted. Patient verbalized understanding of disposition instructions. Patient awake and alert. obeys commands, Oriented to person, place and time. Patient verbalized understanding of disposition instructions. Patient has no functional deficits. patient administered narcotics - no. The following High Risk Discharge criteria are identified: None. Discharged to home ambulatory. Condition: stable. Discharge instructions given to patient, Instructed on discharge instructions, follow up and referral plans. medication usage, Demonstrated understanding of instructions, medications, Pt was receptive of discharge instructions/ teaching. Prescriptions given X 3. CT Study completed. Property sent home with patient. 02:19 Patient left the ED. jmb Addendum: 08/20/2016 15:21 Narrative: Urine culture results reviewed by CHAUNCEY Harp and no changes made. [facility] Signatures: Silvia Blue RN RN [facility] Jyoti Mccoy RN RN [facility] Venice Valdez RN RN rs3 Andrey Valdivia, RPA-C RPA-Cck7 Ivan Dorado PA PA mo1 Jessica, Tonja, SULKY DRIVER SULKY DRIVER matthewp Tai Marks,RN RN ellyb Latoya Hayden,OFFICE CLERK ROUTINE OFFICE CLERK ROUTINE ka4 Arel, Yuliya Gordon, Reg Reg hs2 Buster, Crystal, SULKY DRIVER SULKY DRIVER cln Chart Complete MTDD
--- NOTE | 2016-08-20 17:15 | EDDOCDS ---
Physician Documentation [facility] Name: Michaelle Morales Age: 31 yrs Sex: Female : 1985 Arrival Date: 08/16/2016 Time: 22:30 Bed I4 / M4 Private MD: NORTH Danielle Disposition: 08/17/16 01:48 Discharged to Home/Self Care. Impression: Urinary tract infection, site not specified - left pyelonephritis. - Condition is Stable. - Discharge Instructions: Pyelonephritis, Adult, Urinary Tract Infection, Urodynamic Testing, [id number]. - Prescriptions for Cipro 500 mg Oral Tablet - take 1 tablet by ORAL route every 12 hours; 20 tablet. ZOFRAN ODT 4 mg - dissolve 1 tablet by ORAL route 4 times per day As needed do not chew, do not swallow whole; 10 tablet. Diflucan 150 mg Oral Tablet - take 1 tablet by ORAL route one time for 1 day; 2 tablet. - Medication Reconciliation, Local Pharmacy Hours form. - Follow up: NORTH Danielle; When: 2 - 3 days; Reason: Recheck today's complaints, Continuance of care. Follow up: Sanket Carreon MD; When: Call to arrange an appointment; Reason: Recheck today's complaints, Continuance of care. - Problem is an acute exacerbation. - Symptoms are unchanged. Historical: - Allergies: no known allergies; - Home Meds: 1. none - PMHx: none; - PSHx: none; - Social history: Smoking status: Patient states was never smoker of tobacco. No barriers to communication noted, The patient speaks fluent Bulgarian. - Family history: Not pertinent. - : The pt / caregiver states he / she is not on anticoagulants. Home medication list is obtained from the patient. - Exposure Risk Screening:: None identified. [employer]: 08/16 22:35 LMP 07/29/2016 rs3 Vital Signs: 22:32 BP 133 / 68; Pulse 102; Resp 20; Temp 101.3(O); Pulse Ox 100% ; Weight 90.72 kg / 200 elp lbs; Height 5 ft. 3 in. (160.02 cm); Pain 6/10; 08/17 01:00 Temp 100.5(O); jmb 01:53 BP 110 / 65 LA Sitting (auto/reg); Pulse 77 MON; Resp 20 S; Temp 99.5(T); Pulse Ox 100% cln on R/A; Pain 0/10; 08/16 22:32 Body Mass Index 35.43 (90.72 kg, 160.02 cm) elp MDM: 08/16 23:42 Undress patient appropriately for examination ordered. ck7 23:42 Acetaminophen Tablet 975 mg PO once ordered. ck7 23:42 NS 0.9% 1000 ml IV at bolus once ordered. ck7 23:43 IV Saline Lock ordered. ck7 23:43 NOTHING BY MOUTH+DIET ordered. EDMS 23:43 Amylase Ordered. EDMS 23:43 Basic Metabolic Profile Ordered. EDMS 23:43 CBC with Diff Ordered. EDMS 23:43 Lipase Ordered. EDMS 23:43 Liver Profile Ordered. EDMS 23:43 Urinalysis Ordered. EDMS 23:43 Urine Culture Ordered. EDMS 08/17 00:35 [facility] Payment Agreement was scanned into Active [employer] and attached to record. lja 00:35 Financial registration complete. lja 00:42 CBC with Diff Reviewed. ck7 00:55 UCG- In Lab Ordered. EDMS 01:03 Acetaminophen Tablet 975 mg PO once ordered. jmb 01:14 UCG- In Lab Reviewed. mo1 01:14 Lipase Reviewed. mo1 01:14 Amylase Reviewed. mo1 01:14 Urinalysis Reviewed. mo1 01:15 Liver Profile Reviewed. mo1 01:15 Basic Metabolic Profile Reviewed. mo1 01:33 cefTRIAXone 1 grams IVPB once over 30 mins; dilute in 50mL of NS or D5W ordered. mo1 01:33 Ciprofloxacin 500 mg PO once ordered. mo1 04:39 T-Sheet-- Draft Copy was scanned into [employer] and attached to record. hs2 Administered Medications: 00:02 Not Given (Patient Refused): Acetaminophen Tablet 975 mg PO once jmb 00:08 Drug: NS 0.9% 1000 ml [sodium chloride 0.9 % intravenous solution] Route: IV; Rate: jmb bolus; Site: right antecubital; 01:03 Drug: Acetaminophen 975 mg [acetaminophen 325 mg tablet (3 tabs)] Route: PO; jmb 01:43 Drug: cefTRIAXone 1 grams [ceftriaxone 1 gram solution for injection] Route: IVPB; jmb Infused Over: 30 mins; Site: right antecubital; 01:43 Drug: Ciprofloxacin 500 mg [ciprofloxacin 500 mg tablet (1 tabs)] Route: PO; linda Signatures: Dispatcher [employer] Venice Bowser RN RN rs3 Andrey Valdivia, RPA-C [id number] Ivan Dorado PA PA mo1 Becker, Joshua, RN RN jmb Arel, Yuliya Gordon, Reg Reg hs2 The chart was reviewed and I authenticate all verbal orders and agree with the evaluation and treatment provided.Corrections: (The following items were deleted from the chart) 00:53 08/16 23:42 UCG by Nursing ordered. ck7 ka4 Attachments: 08/17 00:35 [facility] Payment Agreement courteny 04:39 T-Sheet-- Draft Copy hs2 Chart Complete MTDD
== END 2016-08-17 02:19 | disposition home or self-care (01) ==
LOC: M ED 22:30
DX: N39.0 Urinary tract infection, site not specified (principal); N10 Acute pyelonephritis
CPT/HCPCS: 36415; 80048; 80076; 81001; 82150; 83690; 84703; 85025; 87088; 87186; 96374; 99284; J0696